=== PATIENT | female | born 1990 | race Two or more races ===

== ENCOUNTER 2022-01-12 08:24 | Outpatient (REF) | payer OTHER, SELFPAY ==
[2022-01-12 09:15] LABS: Hematocrit 40.1 % (37.0-47.0); Hemoglobin 13.1 g/dl (12.0-16.0); Mean Corpuscular HGB Conc 32.7 g/dl (31.0-35.0); Mean Corpuscular Hemoglobin 27.4 pg (27.0-33.0); Mean Corpuscular Volume 83.9 fL (80.0-98.0); Mean Platelet Volume 9.9 fL (9.4-12.3); Platelet Count 348 X10*3/uL (160-400); Red Blood Count 4.78 X10*6/uL (4.20-5.50); Red Cell Distribution Width 13.3 % (11.0-16.0); White Blood Count 7.6 X10*3/uL (4.8-10.8)
[2022-01-12 09:50] LABS: Alanine Aminotransferase 13 U/L (0-31); Albumin Level 4.1 g/dL (3.5-5.0); Alkaline Phosphatase 60 U/L (39-117); Anion Gap 14 (12-20); Aspartate Amino Transferase 15 U/L (5-31); Bilirubin Total 0.3 mg/dL (0.0-1.0); Blood Urea Nitrogen 7 mg/dL (9-16); Calcium 9.1 mg/dL (8.4-10.2); Carbon Dioxide 25 mmol/L (22-29); Chloride 101 mmol/L (96-108); Cholesterol 202 mg/dL; Estimated Glomerular Filt Rate > 60; Glucose Fasting 86 mg/dL (60-99); HDL Cholesterol 85 mg/dL; LDL Cholesterol Calculated 105 mg/dl; Potassium 3.9 mmol/L (3.3-5.1); Sodium 136 mmol/L (135-145); Triglycerides 63 mg/dL
[2022-01-12 10:13] LABS: TSH reflex Free T4 17.94 uIU/mL (0.32-4.0)
[2022-01-12 10:54] LABS: Free T4 (Free Thyroxine) 0.85 ng/dL (0.71-1.85)
== END 2022-01-12 08:25 | disposition home or self-care (01) ==
LOC: HO.LAB 08:24
PROVIDERS: PCP Hospitalist; Referring Provider Midwife; Visit Provider Hospitalist
DX: Z00.00 Encounter for general adult medical examination without abnormal findings (principal)
CPT/HCPCS: 36415; 80053; 80061; 84439; 84443; 85027

== ENCOUNTER 2022-02-12 09:38 | Outpatient (REF) | payer OTHER, SELFPAY ==
[2022-02-12 10:53] LABS: Thyroid Stimulating Hormone 2.67 uIU/mL (0.32-4.0)
[2022-02-15 20:36] LABS: Thyrotropin Receptor Antibody <1.00 IU/L (<=2.00)
== END 2022-02-12 09:39 | disposition home or self-care (01) ==
LOC: HO.LAB 09:38
PROVIDERS: PCP Hospitalist; Visit Provider Internal Medicine Endocrinology, Diabetes & Metabolism
DX: Z86.39 Personal history of other endocrine, nutritional and metabolic disease (principal)
CPT/HCPCS: 36415; 83520; 84439; 84443

== ENCOUNTER 2022-03-14 08:32 | Outpatient (REF) | payer OTHER, SELFPAY ==
[2022-03-14 10:13] LABS: Free T4 (Free Thyroxine) 1.17 ng/dL (0.71-1.85); Thyroid Stimulating Hormone 2.54 uIU/mL (0.32-4.0)
== END 2022-03-14 08:33 | disposition home or self-care (01) ==
LOC: HO.LAB 08:32
PROVIDERS: PCP Hospitalist; Visit Provider Internal Medicine Endocrinology, Diabetes & Metabolism
DX: Z86.39 Personal history of other endocrine, nutritional and metabolic disease (principal)
CPT/HCPCS: 36415; 84439; 84443

== ENCOUNTER 2022-04-16 08:48 | Outpatient (REF) | payer OTHER, SELFPAY ==
[2022-04-16 11:06] LABS: Free T4 (Free Thyroxine) 1.01 ng/dL (0.71-1.85); Thyroid Stimulating Hormone 2.22 uIU/mL (0.32-4.0)
== END 2022-04-16 08:49 | disposition home or self-care (01) ==
LOC: HO.LAB 08:48
PROVIDERS: PCP Hospitalist; Visit Provider Internal Medicine Endocrinology, Diabetes & Metabolism
DX: Z86.39 Personal history of other endocrine, nutritional and metabolic disease (principal)
CPT/HCPCS: 36415; 84439; 84443

== ENCOUNTER 2022-06-10 09:32 | Outpatient (REF) | payer OTHER, SELFPAY ==
[2022-06-10 11:30] LABS: Free T4 (Free Thyroxine) 0.93 ng/dL (0.71-1.85); Thyroid Stimulating Hormone 5.82 uIU/mL (0.32-4.0)
== END 2022-06-10 09:33 | disposition home or self-care (01) ==
LOC: HO.LAB 09:32
PROVIDERS: PCP Hospitalist; Visit Provider Internal Medicine Endocrinology, Diabetes & Metabolism
DX: Z86.39 Personal history of other endocrine, nutritional and metabolic disease (principal)
CPT/HCPCS: 36415; 84439; 84443

== ENCOUNTER 2022-07-10 07:26 | Outpatient (REF) | payer OTHER, SELFPAY ==
[2022-07-10 09:08] LABS: Free T4 (Free Thyroxine) 0.89 ng/dL (0.71-1.85); Thyroid Stimulating Hormone 1.96 uIU/mL (0.32-4.0)
== END 2022-07-10 07:27 | disposition home or self-care (01) ==
LOC: HO.LAB 07:26
PROVIDERS: PCP Hospitalist; Visit Provider Internal Medicine Endocrinology, Diabetes & Metabolism
DX: Z86.39 Personal history of other endocrine, nutritional and metabolic disease (principal)
CPT/HCPCS: 36415; 84439; 84443

== ENCOUNTER → 2022-07-11 08:33 | Outpatient (BNVA) | payer OTHER, SELFPAY | PROVIDERS: PCP Hospitalist; Visit Provider Internal Medicine Endocrinology, Diabetes & Metabolism | DX: Z13.89 Encounter for screening for other disorder (principal) ==

== ENCOUNTER 2022-09-12 09:16 | Outpatient (REF) | payer OTHER, SELFPAY ==
[2022-09-12 10:54] LABS: Free T4 (Free Thyroxine) 1.23 ng/dL (0.71-1.85); Thyroid Stimulating Hormone 0.04 uIU/mL (0.32-4.0)
== END 2022-09-12 09:17 | disposition home or self-care (01) ==
LOC: HO.LAB 09:16
PROVIDERS: PCP Hospitalist; Visit Provider Internal Medicine Endocrinology, Diabetes & Metabolism
DX: Z86.39 Personal history of other endocrine, nutritional and metabolic disease (principal)
CPT/HCPCS: 36415; 84439; 84443

== ENCOUNTER 2022-10-25 09:23 | Outpatient (REF) | payer OTHER, SELFPAY ==
[2022-10-25 11:12] LABS: Free T4 (Free Thyroxine) 0.92 ng/dL (0.71-1.85); Thyroid Stimulating Hormone 1.08 uIU/mL (0.32-4.0)
== END 2022-10-25 09:24 | disposition home or self-care (01) ==
LOC: HO.LAB 09:23
PROVIDERS: PCP Hospitalist; Visit Provider Internal Medicine Endocrinology, Diabetes & Metabolism
DX: E89.0 Postprocedural hypothyroidism (principal)
CPT/HCPCS: 36415; 84439; 84443

== ENCOUNTER → 2022-11-13 08:30 | Outpatient (BNVA) | payer OTHER, SELFPAY | PROVIDERS: PCP Hospitalist; Visit Provider Internal Medicine Endocrinology, Diabetes & Metabolism ==

== ENCOUNTER 2023-02-03 09:40 | Outpatient (AMB) | payer OTHER, SELFPAY ==
[2023-02-03 09:46] VITALS: BP 108/64; PULSE 67; RESP 12; TEMP 36.6; O2SAT 99; BMI 35.7
--- NOTE | 2023-02-03 09:46 | A.OFFPC_ITS ---
Vital Signs 02/03/23 09:46 Height 5 ft 8 in Weight 235 lb 2 oz BMI 35.7 BP 108/64 Blood Pressure Location Lt brachial Position Sitting Respiration 12 Pulse 67 Pulse Source Pulse Oximeter Temp 97.8 F Temp Source Temporal Artery Scan Pulse Oximetry (%) 99 Oxygen Delivery Method Room Air Intake Visit Reasons: PE Intake Note: Patient states that her caramel candy maker helper discharged her and she was told to follow up with PCP for her medications. Patient states that shes been experiencing alot of dandruff and would like a referral to a race car driver. Patient also states that after having her baby its been hard for her to lose weight and she would like info on what could be done to help. 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 Operator Required: No Accompanied by: Spouse Allergies No Known Allergies Allergy (Verified 02/03/23 10:38) Medication List - Last Reconciled 02/03/23 by Rose Mary Blanchard CNP levonorgestrel (Liletta) intrauterine levothyroxine 100 mcg PO DAILY Tobacco use date assessed: 02/03/23 Dental Screening Dental Screen Date: 02/03/23 Did you have a dental visit in the last 12 months?: No Did you have a dental problem in the last 6 months where you did not have access to dental care?: No Was dental information given to patient?: Yes HPI HPI Comments History of Present Illness Details 32-year-old female presents for a comple te physical exam. She has history of hypothyroidism and is on levothyroxine 100 mg daily. She notes she has been taking her medication as prescribed. She was followed by [facility] endocrinology and was discharged in October with recommendation to follow-up with her PCP. She reports dandruff and has been using denorex dandruff shampoo. She states she has an appointment with dermatology next week. She notes she delivered a baby 6 months ago and has been finding it difficult to lose weight. She states she exercise at the gym 3 days a week and has been maintaining a healthy diet. She notes that she has an appointment scheduled with [facility] for a pap smear test next month. 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 1. Little interest or pleasure in doing things: not at all 2. Feeling down, depressed, or hopeless: not at all 3. Trouble falling or staying asleep, or sleeping too much: not at all 4. Feeling tired or having little energy: not at all 5. Poor appetite or overeating: not at all 6. Feeling bad about yourself - or that you are a failure or have let yourself or your family down: not at all 7. Trouble concentrating on things, such as reading the newspaper or watching television: not at all 8. Moving or speaking so slowly that other people could have noticed. Or the opposite - being so fidgety or restless that you have been moving around a lot more than usual: not at all 9. Thoughts that you would be better off or of hurting yourself in some way: not at all Total score: 0 Depression Screening Interpretation: Negative Source: Developed by Drs. Ge Piña, Andreia Dunn, Dean Bran and colleagues, with an educational gwen from [employer]. Thrive Questionnaire Date Thrive assessed: 02/03/23 I am a: Patient What is your living situation today?: I have a steady place to live Within the past 12 months, did the food you bought not last and you didn't have the money to get more?: Never true Within the past 12 months, did you worry whether your food would run out before you got money to buy more?: Never true Do you have trouble paying for medicines?: No Do you have trouble getting transportation to medical appointments?: No Do you have trouble paying your heating and electricity bill?: No Do you have trouble taking care of your child, family member or friend?: No Do you have trouble with day-to-day activities such as bathing, preparing meals, shopping, managing finances, etc.?: No Are you currently unemployed and looking for a job?: No Are you interested in more education?: No Please select the resources that you would like help with: None Currently or been in a relationship where the following occur: no concerns reported AUDIT C Alcohol Use Questionnaire (AUDIT-C) 1. How often do you have a drink containing alcohol?: Monthly or less 2. How many drinks containing alcohol do you have on a typical day when you are drinking?: 1 or 2 3. How often do you have six or more drinks on one occasion?: Never Total Score: 1 KATELIN-7 AMB Questionnaire KATELIN-7 Date KATELIN - 7 assessed: 02/03/23 Feeling nervous, anxious, or on edge: 0 = Not at all Not being able to stop or control worryin = Not at all Worrying too much about different things: 0 = Not at all Trouble relaxin = Not at all Being so restless that it is hard to sit still: 0 = Not at all Becoming easily annoyed or irritable: 0 = Not at all Feeling afraid as if something awful might happen: 0 = Not at all Total KATELIN-7 score (0-4 normal; 5-9 mild; 10-14 moderate; 15-21 severe): 0 Source: Developed by Drs. Ge Piña, Andreia Dunn, Dean Bran and colleagues, with an educational gwen from [employer]. Review of Systems Const Details: Denies chills, Denies fatigue, Denies fever(s), Denies headache(s) and Denies weakness HEENT Denies change in vision, Denies dizziness, Denies headache(s), Denies hearing loss, Denies nasal congestion, Denies sinus pain, Denies sinus pressure and Denies sore throat Card Denies chest pain, Denies lightheadedness, Denies dyspnea and Denies other (palpitations) Resp Denies cough, Denies dyspnea and Denies wheezing GI Denies abdominal pain, Denies melena, Denies hematochezia, Denies change in bowel habits, Denies dyspepsia and Denies nausea Denies hematuria and Denies dysuria Musc Denies abnormal gait, Denies myalgias, Denies arthralgias, Denies numbness and Denies tingling Skin/Breast Denies rash, Denies unusual bruising and Denies wounds Neuro Denies abnormal gait, Denies dizziness, Denies headache(s), Denies memory loss, Denies numbness, Denies Sensory deficit (Neuro), Denies tingling and Denies weakness Psych Denies anxiety, Denies depression and Denies memory loss Endo Denies cold intolerance, Denies fatigue, Denies heat intolerance, Denies polydipsia and Denies polyuria Rosalio/Lymph Denies easy bleeding and Denies easy bruising Aller/Immun Denies wheezing Physical exam (Primary Care) Vital Signs: Last Vital Signs Temp 97.8 F 02/03/23 09:46 Pulse 67 02/03/23 09:46 Resp 12 02/03/23 09:46 BP 108/64 02/03/23 09:46 Pulse Ox 99 02/03/23 09:46 Oxygen Delivery Method Room Air 02/03/23 09:46 BMI result Body Mass Index 35.7 Tobacco/Smoking Status: Tobacco use Status Tobacco use date assessed 02/03/23 02/03/23 09:58 Patient Tobacco Use Status Never used Tobacco 02/03/23 09:58 e-Cigarette/Vaping Use Never Used 02/03/23 09:58 PHQ-9: PHQ-9 Score PHQ-9: Total score 0 02/03/23 10:40 Depression Screening Interpretation: Negative Thrive Assessment: Date of Thrive Assessment Date Thrive assessed 02/03/23 02/03/23 09:58 Currently or been in a relationship where the following occur: no concerns reported Const Other: General: no acute distress, well developed, alert and awake Nutritional Appearance: well nourished Orientation/consciousness: patient oriented x3 HENMT Head: Yes normocephalic and Yes atraumatic Ears: hearing grossly normal bilaterally and TM's normal bilaterally General nose exam: Normal external nose present and Normal nares present Mouth: Normal oral and palatal mucosa present and moist mucous membranes Teeth and gingiva: dentition normal Throat: Yes oropharynx normal Eyes Pupils: Equal, round and reactive pupils present and Pupil accommodation reflex normal EOM: EOMs intact bilaterally Neck Neck: Yes normal visual inspection, Yes no lymphadenopathy and Yes trachea midline Thyroid: Thyroid normal Carotids: no bruits Lymphatic: no lymphadenopathy noted Chest Chest palpation & inspection: normal inspection of the chest Resp Effort & Inspection: normal respiratory effort Auscultation: clear to auscultation bilaterally Cardio Rate: regular rate Rhythm: regular rhythm Heart sounds: S1 normal heart sound present, S2 normal heart sound present, no gallops, no murmurs and no rubs Bruits: no abdominal aortic bruits and no carotid bruits GI Palpation (GI): No Abdominal aortic bruit present, Soft to palpation, nontender, No hepatosplenomegaly present and No Rebound tenderness present Auscultation: normal bowel sounds General: Yes no CVA tenderness Back/Spine/Pelvis Back: no CVA tenderness Cervical Spine: cervical ROM normal and No Cervical spine tenderness Thoracic/Lumbar Spine: thoraco-lumbar ROM normal, No pain with thoraco-lumbar ROM, No thoracic spinal tenderness and No lumbar spinal tenderness Skin General: warm and dry. Normal skin color. Normal skin turgor Lesions: no lesions Rashes: no rashes Trauma: no lacerations or abrasions Wounds: no wounds Nails: normal Neuro General: patient oriented x3, gait normal and CN's II-XI intact bilaterally Cranial nerves: Yes Equal, round and reactive pupils present Cognition (Neuro): normal cognition Gait exam (Neuro): Normal gait present Motor exam (neuro): 5/5 motor strength present throughout Sensory Exam: No Sensory deficit (Neuro) Deep tendon reflexes (DTR's): Right patellar reflex intensity grade: 2+ and Left patellar reflex intensity grade: 2+ Extrem General: Yes normal to inspection, No edema and No calf tenderness Psych Appearance: grossly normal Affect: normal affect Attitude: cooperative Thought process: Normal thought process present Assessment and Plan Assessment & Plan (1) Normal physical exam: Code(s): Z00.00 - Encounter for general adult medical examination without abnormal findings Plan: No significant physical restrictions or limitations noted She has not had routine blood work done in over a year. Routine fasting labs ordered; advised to fast for at least 10-12 hours and get blood work done; schedule a telehealth appointment in 2-4 weeks for labs review; follow-up with Dermatology and punch press feeder as planned; verbalized understanding and agreed with the plan. (2) Dandruff: Code(s): L21.0 - Seborrhea capitis Plan: She reports dandruff and has been using denorex dandruff shampoo. She states she has an appointment with dermatology next week. Small amount of dandruff noted to the the frontal scalp, no seborrheic dermatitis noted. Advised to continue to use denorex dandruff shampoo and follow-up with Dermatology as planned. Return with worsening or new signs and symptoms. Verbalized understanding and agreed with treatment plan. (3) Obesity (BMI 30-39.9): Code(s): E66.9 - Obesity, unspecified Plan: She notes she delivered a baby 6 months ago and has been finding it difficult to lose weight. She states she exercise at the gym 3 days a week and has been maintaining a healthy diet. Routine exercise and healthy diet encouraged. Referred to nutrition/dietitian. Follow-up with concerns or symptoms. Verbalized understanding and agreed with treatment plan. (4) Laboratory tests ordered as part of a complete physical exam (CPE): Code(s): Z00.00 - Encounter for general adult medical examination without abnormal findings Plan: Fasting labs ordered as part of a complete physical exam. Advised to fast for at least 10 hours before getting labs drawn. May drink water Verbalized understanding and agreed with treatment plan. Orders: Orders Complete Blood Count Auto Diff Today Z00.00 - Encounter for general adult medical examination without abnormal findings Lipid Panel Today Z00.00 - Encounter for general adult medical examination without abnormal findings UA CC w/rflx Micro + Cult Today Z00.00 - Encounter for general adult medical examination without abnormal findings Comprehensive [place]. Panel Fast Today Z00.00 - Encounter for general adult medical examination without abnormal findings TSH reflex Free T4 Today Z00.00 - Encounter for general adult medical examination without abnormal findings Referrals Nutrition/Dietitian Referral E66.9 - Obesity, unspecified Coding Level of Care Code Est Pt Prev Care 18-39y(18938) Diagnoses Normal physical exam Z00.00 Dandruff L21.0 Obesity (BMI 30-39.9) E66.9 Laboratory tests ordered as part of a complete physical exam (CPE) Z00.00
== END 2023-02-03 11:01 | disposition home or self-care (01) ==
PROVIDERS: PCP Hospitalist; Visit Provider Nurse Practitioner Family
DX: Z00.00 Encounter for general adult medical examination without abnormal findings (principal); L21.0 Seborrhea capitis; E66.9 Obesity, unspecified; Z68.35 Body mass index [BMI] 35.0-35.9, adult
CPT/HCPCS: 99395

== ENCOUNTER 2023-02-03 11:02 | Outpatient (REF) | payer OTHER, SELFPAY ==
[2023-02-03 14:16] LABS: MANUAL DIFF FLAG NO
[2023-02-03 14:21] LABS: Basophils Percent Auto 0.7 % (0-2); Eosinophils Absolute Auto 0.2 X10*3/uL (0.0-0.4); Eosinophils Percent Auto 2.7 % (0-4); Hematocrit 41.5 % (37.0-47.0); Hemoglobin 13.5 g/dl (12.0-16.0); Imm Gran Abs Auto 0.01 X10*3/uL (0.00-0.03); Imm Gran Pct Auto 0.2 % (0.0-0.4); Lymphocytes Absolute Auto 1.7 X10*3/uL (1.2-4.9); Lymphocytes Percent Auto 29.9 % (20-40); Mean Corpuscular HGB Conc 32.5 g/dl (31.0-35.0); Mean Corpuscular Hemoglobin 27.9 pg (27.0-33.0); Mean Corpuscular Volume 85.7 fL (80.0-98.0); Mean Platelet Volume 10.3 fL (9.4-12.3); Monocytes Absolute Auto 0.3 X10*3/uL (0.1-1.2); Monocytes Percent Auto 4.6 % (2-11); Neutrophils Absolute Auto 3.5 x10*3/uL (2.0-8.3); Neutrophils Percent Auto 61.9 % (45-73); Platelet Count 359 X10*3/uL (160-400); Red Blood Count 4.84 X10*6/uL (4.20-5.50); Red Cell Distribution Width 12.8 % (11.0-16.0); White Blood Count 5.6 X10*3/uL (4.8-10.8)
[2023-02-03 14:39] LABS: Appearance Urine Clear; Color Urine Yellow; Glucose Urine UA Negative (Negative); Leukocyte Esterase Urine Negative (Negative); Nitrite Urine Negative (Negative); Specific Gravity - Urine 1.015 (1.005-1.025); Urine Blood Negative (Negative); Urine Ketones Negative (Negative); Urine Protein Negative (Neg-Trace)
[2023-02-03 15:05] LABS: Alanine Aminotransferase 17 U/L (0-31); Albumin Level 4.3 g/dL (3.5-5.0); Alkaline Phosphatase 75 U/L (39-117); Anion Gap 11 (12-20); Aspartate Amino Transferase 19 U/L (5-31); Bilirubin Total 0.5 mg/dL (0.0-1.0); Blood Urea Nitrogen 11 mg/dL (9-16); Calcium 9.5 mg/dL (8.4-10.2); Carbon Dioxide 25 mmol/L (22-29); Chloride 106 mmol/L (96-108); Cholesterol 179 mg/dL (<200); Estimated Glomerular Filt Rate > 60; Glucose Fasting 91 mg/dL (60-99); HDL Cholesterol 60 mg/dL (>40); LDL Cholesterol Calculated 105 mg/dL (<100); Potassium 3.9 mmol/L (3.3-5.1); Sodium 138 mmol/L (135-145); Total Protein 7.5 g/dL (6.5-8.0); Triglycerides 70 mg/dL (<150)
[2023-02-03 15:10] LABS: TSH reflex Free T4 0.53 uIU/mL (0.32-4.0)
== END 2023-02-03 11:03 | disposition home or self-care (01) ==
LOC: HO.WFDLDS 11:02
PROVIDERS: Visit Provider Nurse Practitioner Family
DX: Z00.00 Encounter for general adult medical examination without abnormal findings (principal); Z20.2 Contact with and (suspected) exposure to infections with a predominantly sexual mode of transmission
CPT/HCPCS: 36415; 80053; 80061; 81003; 84443; 85025

== ENCOUNTER 2023-03-06 15:26 | Outpatient (AMB) | payer OTHER, SELFPAY ==
--- NOTE | 2023-03-06 15:21 | MHC.PC.OV ---
Intake Visit Reasons: discuss labs Intake Note: Patient states she viewed them in portal and nataly like to discuss high cholesterol level. Ball Fringe Machine Operator Required: No Allergies No Known Allergies Allergy (Verified 03/06/23 15:26) Medication List - Last Reconciled 03/06/23 by Rose Mary Blanchard CNP levonorgestrel (Liletta) intrauterine levothyroxine 100 mcg PO DAILY Tobacco use date assessed: 02/03/23 HPI HPI Comments History of Present Illness Details This is a telephonic telehealth visit for review of recent blood work. Patient had a physical exam a month ago and routine labs were ordered. She has history of hypothyroidism associated with surgical procedure. She was followed by endocrinology who recommended follow-up with primary care at the patient's last visit. She offers no complaints and denies acute symptoms. 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 Ge Piña, Andreia Dunn, Dean Bran and colleagues, with an educational gwen from [employer]. Review of Systems Const Details: Const Denies chills, Denies fatigue, Denies fever(s), Denies headache(s) and Denies weakness ENT Denies dizziness and Denies headache(s) Card Denies chest pain, Denies lightheadedness, Denies dyspnea and Denies other (Palpitations) Resp Denies cough, Denies dyspnea, Denies wheezing and Denies other ( shortness of breath) GI Denies abdominal pain, Denies melena, Denies hematochezia, Denies change in bowel habits, Denies dyspepsia and Denies nausea Denies hematuria and Denies dysuria Musc Denies abnormal gait, Denies myalgias, Denies arthralgias, Denies numbness and Denies tingling Skin/Breast Denies rash, Denies unusual bruising and Denies wounds Neuro Denies abnormal gait, Denies dizziness, Denies headache(s), Denies memory loss, Denies numbness, Denies Sensory deficit (Neuro), Denies tingling and Denies weakness Psych Denies anxiety, Denies depression, Denies memory loss Endo Denies cold intolerance, Denies fatigue, Denies heat intolerance, Denies polydipsia and Denies polyuria Aller/Immun Denies wheezing Physical exam (Primary Care) Tobacco/Smoking Status: Tobacco use Status Tobacco use date assessed 02/03/23 03/06/23 15:23 Patient Tobacco Use Status Never used Tobacco 03/06/23 15:23 e-Cigarette/Vaping Use Never Used 03/06/23 15:23 Thrive Assessment: Date of Thrive Assessment Date Thrive assessed 02/03/23 03/06/23 15:23 Const Other: Telehealth visit. No physical exam Telehealth Telehealth Location of provider rendering services: practice address Location of patient: address on file Patient Identification confirmed using: Name, : Yes Telehealth method: voice only Patient verbally consented to treatment: Yes Patient verbally consented to billing insurance company: Yes Patient informed of any privacy concerns related to visit: Yes Assessment and Plan Assessment & Plan (1) Hypothyroidism associated with surgical procedure: Code(s): E89.0 - Postprocedural hypothyroidism Plan: Recent lab results reviewed with the patient. TSH level was normal Continue to take levothyroxine as prescribed Will recheck TSH/T4 levels in 6 months. Advised to get blood work done to 3 days before next visit Follow-up in 6 months or return sooner with worsening or new symptoms Verbalized understanding and agreed with treatment plan. (2) Elevated LDL cholesterol level: Code(s): E78.00 - Pure hypercholesterolemia, unspecified Plan: Recent lab results is unremarkable except for slightly elevated LDL level, 105. Urinalysis is normal Advised to limit foods high in saturated fat and avoid foods high trans fat Routine exercise encouraged Will continue to monitor Verbalized understanding and agreed with treatment plan. Orders: Orders TSH reflex Free T4 6 Months E89.0 - Postprocedural hypothyroidism Coding Level of Care Code Tele Est Pt Level 2 (98677) Diagnoses Hypothyroidism associated with surgical procedure E89.0 Elevated LDL cholesterol level E78.00 Time Spent (min) 15
== END 2023-03-06 16:47 | disposition home or self-care (01) ==
LOC: HO.HMGFM 15:26
PROVIDERS: PCP Hospitalist; Visit Provider Nurse Practitioner Family
DX: E89.0 Postprocedural hypothyroidism (principal); E78.00 Pure hypercholesterolemia, unspecified
CPT/HCPCS: 99212

== ENCOUNTER 2023-08-18 09:01 | Outpatient (REF) | payer OTHER, SELFPAY ==
[2023-08-18 11:57] LABS: TSH reflex Free T4 2.86 uIU/mL (0.32-4.0)
== END 2023-08-18 09:02 | disposition home or self-care (01) ==
LOC: HO.WFDLDS 09:01
PROVIDERS: Visit Provider Nurse Practitioner Family
DX: E89.0 Postprocedural hypothyroidism (principal)
CPT/HCPCS: 36415; 84443

== ENCOUNTER 2023-08-18 09:07 | Outpatient (AMB) | payer OTHER, SELFPAY ==
[2023-08-18 09:32] VITALS: BP 122/76; PULSE 89; RESP 13; TEMP 36.4; O2SAT 99; BMI 35.4
--- NOTE | 2023-08-18 09:32 | A.OFFPC_ITS ---
Vital Signs 08/18/23 09:32 Height 5 ft 8 in Weight 233 lb BMI 35.4 BP 122/76 Blood Pressure Location Rt brachial Position Sitting Respiration 13 Pulse 89 Pulse Source Pulse Oximeter Temp 97.6 F Temp Source Temporal Artery Scan Pulse Oximetry (%) 99 Oxygen Delivery Method Room Air Intake Visit Reasons: 6 mos hypothyroidism Ginger Farmer Required: No Accompanied by: Self / Same As Patient Allergies No Known Allergies Allergy (Verified 08/18/23 09:57) Medication List - Last Reconciled 08/18/23 by Rose Mary Blanchard CNP levothyroxine 100 mcg PO DAILY Tobacco use date assessed: 08/18/23 Dental Screening Dental Screen Date: 08/18/23 Did you have a dental visit in the last 12 months?: No Did you have a dental problem in the last 6 months where you did not have access to dental care?: No Was dental information given to patient?: Patient has dentist HPI HPI Comments History of Present Illness Details 32-year-old female presents for hypothyr oidism follow-up She admits to taking levothyroxine as prescribed without adverse reactions She offers no complaints and denies acute symptoms at this time She was not able to get her TSH/T4 blood work done before this appointment but did so this morning She notes that she has been working with the operations architect/dietitian from [place] and has lost 8 lb. She notes that has a cheaper option than having a operations architect in the [place] 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 Ge Piña, Andreia Dunn, Dean Bran and colleagues, with an educational gwen from [employer]. Review of Systems Const Details: Const Denies chills, Denies fatigue, Denies fever(s), Denies headache(s) and Denies weakness ENT Denies dizziness and Denies headache(s) Card Denies chest pain, Denies lightheadedness, Denies dyspnea and Denies other (Palpitations) Resp Denies cough, Denies dyspnea, Denies wheezing and Denies other ( shortness of breath) GI Denies abdominal pain, Denies melena, Denies hematochezia, Denies change in bowel habits, Denies dyspepsia and Denies nausea Denies hematuria and Denies dysuria Musc Denies abnormal gait, Denies myalgias, Denies arthralgias, Denies numbness and Denies tingling Skin/Breast Denies rash, Denies unusual bruising and Denies wounds Neuro Denies abnormal gait, Denies dizziness, Denies headache(s), Denies memory loss, Denies numbness, Denies Sensory deficit (Neuro), Denies tingling and Denies weakness Psych Denies anxiety, Denies depression, Denies memory loss Endo Denies cold intolerance, Denies fatigue, Denies heat intolerance, Denies polydipsia and Denies polyuria Aller/Immun Denies wheezing Physical exam (Primary Care) Vital Signs: Last Vital Signs Temp 97.6 F 08/18/23 09:32 Pulse 89 08/18/23 09:32 Resp 13 08/18/23 09:32 BP 122/76 08/18/23 09:32 Pulse Ox 99 08/18/23 09:32 Oxygen Delivery Method Room Air 08/18/23 09:32 BMI result Body Mass Index 35.4 Tobacco/Smoking Status: Tobacco use Status Tobacco use date assessed 08/18/23 08/18/23 09:37 Patient Tobacco Use Status Never used Tobacco 08/18/23 09:37 e-Cigarette/Vaping Use Never Used 08/18/23 09:37 Thrive Assessment: Date of Thrive Assessment Date Thrive assessed 02/03/23 08/18/23 09:37 Const Other: General: no acute distress and well developed Nutritional Appearance: well nourished Orientation/consciousness: patient oriented x3 HENMT Head: Yes normocephalic and Yes atraumatic Eyes General: appearance normal, both eyes and all related structures Pupils: Equal, round and reactive pupils present EOM: EOMs intact bilaterally Resp Effort & Inspection: normal respiratory effort Auscultation: clear to auscultation bilaterally Cardio Rate: regular rate Rhythm: regular rhythm Heart sounds: S1 normal heart sound present, S2 normal heart sound present, no gallops, no murmurs and no rubs GI Palpation (GI): No Abdominal aortic bruit present, Soft to palpation, nontender, No hepatosplenomegaly present and No Rebound tenderness present Auscultation: normal bowel sounds General: Yes no CVA tenderness Back/Spine/Pelvis Back: no CVA tenderness Cervical Spine: cervical ROM normal and No Cervical spine tenderness Thoracic/Lumbar Spine: thoraco-lumbar ROM normal, No pain with thoraco-lumbar ROM, No thoracic spinal tenderness and No lumbar spinal tenderness Extrem General: Yes normal to inspection, No edema and No calf tenderness Skin General: warm and dry. Normal skin color. Normal skin turgor Neuro General: patient oriented x3, gait normal and no focal neuro deficit Cranial nerves: Yes Equal, round and reactive pupils present Cognition (Neuro): normal cognition Gait exam (Neuro): Normal gait present Sensory Exam: No Sensory deficit (Neuro) Psych Appearance: grossly normal Affect: normal affect Attitude: cooperative Thought process: Normal thought process present Assessment and Plan Assessment & Plan (1) Hypothyroidism associated with surgical procedure: Code(s): E89.0 - Postprocedural hypothyroidism Plan: She had TSH/T4 blood work done today Will review results and make changes as needed Continue current treatment regimen Follow-up in 6 months for an extended physical exam or return sooner with symptoms or concerns Verbalized understanding and agreed with treatment plan Orders: Orders Comprehensive Sylvia. Panel Fast 6 Months Z00.00 - Encounter for general adult medical examination without abnormal findings Lipid Panel 6 Months Z00.00 - Encounter for general adult medical examination without abnormal findings Complete Blood Count Auto Diff 6 Months Z00.00 - Encounter for general adult medical examination without abnormal findings TSH reflex Free T4 6 Months Z00.00 - Encounter for general adult medical examination without abnormal findings UA CC w/rflx Micro + Cult 6 Months Z00.00 - Encounter for general adult medical examination without abnormal findings Coding Level of Care Code Est Pt Level 3 (74868) Diagnoses Hypothyroidism associated with surgical procedure E89.0
== END 2023-08-18 10:07 | disposition home or self-care (01) ==
PROVIDERS: PCP Nurse Practitioner Family; Visit Provider Nurse Practitioner Family
DX: E89.0 Postprocedural hypothyroidism (principal)
CPT/HCPCS: 99213

== ENCOUNTER 2023-09-03 08:11 | Outpatient (AMB) | payer OTHER, SELFPAY ==
--- NOTE | 2023-09-03 08:19 | MHC.OFFWIV ---
Intake Vital Signs 09/03/23 08:20 Height 5 ft 8 in Weight 232 lb BMI 35.3 BP 112/60 Blood Pressure Location Rt brachial Position Sitting Pulse 103 H Pulse Source Auscultation Pulse Oximetry (%) 99 Oxygen Delivery Method Room Air Intake Visit Reasons: Back pain Patient Tobacco Use Status: Never used Tobacco Allergies No Known Allergies Allergy (Verified 09/03/23 08:23) Medication List - Last Reconciled 09/03/23 by Mahogany Rivero, INTERNAL SECURITY MANAGER- levothyroxine 100 mcg PO DAILY HPI HPI Comments History of Present Illness Details Here today with c/o back pain Last night was pulling the trash bin and feels like she moved wrong [place] pain immediately Went to bed and woke up this AM and the pain is worse Standing straight and general movement, including carrying child causes pain Feels likes it is swollen Pain is located in mid lower back Tried topical analgesic with no relief. Not breast feeding. Denies red flag sx of back pain. 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[employer]) Current occupational exposures/hazards: No Cognitive needs: No Hearing needs: No Vision needs: No Review of Systems Const All systems reviewed & are unremarkable except as noted in HPI and below Physical Exam Const Other: awake alert NAD accompanied by Neck FROM CARVER x 4, strength and tone WNL, Cap refill WNL, no pain with palp of spine, paraspinal tenderness w/ spasm on the left lower back Assessment & Plan Assessment & Plan (1) Low back pain: Comment: with spasm Plan: meloxicam QD x 7 days with food and then PRN; APAP only for breakthrough pain, no NSAIDS while on meloxicam Muscle relaxer at HS only, to be used sparingly. Supportive care such as gentle stretching, heat/ice applications and topical treatments ok Edu on red flag s/sx to report Out of work note until 09/08/23 Code(s): M54.50 - Low back pain, unspecified Qualifiers: Chronicity: acute Back pain laterality: left Plan: . Plan This note is constructed using voice recognition software. While every effort has been made to ensure accuracy in rapid transit operator, still errors may have been included Sometimes, these errors may affect the content or meaning of the given sentence . Total time spent caring for the patient today was 30 minutes. This includes time spent before the visit reviewing the chart, time spent during the visit, and time spent after the visit on documentation Medications: New meloxicam 7.5 mg PO DAILY 21 tabs 0RF tizanidine (Zanaflex) 4 mg PO BEDTIME PRN 7 tabs 0RF muscle spasticity Coding Level of Care Code Est Pt Level 4 (69487) Diagnoses Low back pain M54.50 Chronicity: acute Back pain laterality: left
[2023-09-03 08:20] VITALS: BP 112/60; PULSE 103; O2SAT 99; BMI 35.3
== END 2023-09-03 08:34 | disposition home or self-care (01) ==
LOC: HO.HMGWIW 08:11
PROVIDERS: PCP Nurse Practitioner Family
DX: M54.50 Low back pain, unspecified (principal)
CPT/HCPCS: 99214

== ENCOUNTER 2023-12-30 08:38 | Outpatient (REF) | payer OTHER, MEDICAID, SELFPAY ==
[2023-12-30 10:15] LABS: Free T4 (Free Thyroxine) 0.82 ng/dL (0.71-1.85); Thyroid Stimulating Hormone 5.09 uIU/mL (0.32-4.0)
== END 2023-12-30 08:39 | disposition home or self-care (01) ==
LOC: HO.LAB 08:38
PROVIDERS: PCP Nurse Practitioner Family; Visit Provider Internal Medicine Endocrinology, Diabetes & Metabolism
DX: Z86.39 Personal history of other endocrine, nutritional and metabolic disease (principal)
CPT/HCPCS: 36415; 84439; 84443

== ENCOUNTER 2023-12-30 10:19 | Outpatient (AMB) | payer OTHER, SELFPAY ==
--- NOTE | 2023-12-30 10:46 | MHC.OFFVIS ---
Vital Signs 12/30/23 10:47 Height 5 ft 8 in Weight 231 lb 11.293 oz BMI 35.2 BP 112/80 Blood Pressure Location Lt brachial Position Sitting Pulse 80 Pulse Source Pulse Oximeter Intake Visit Reasons: f/u hypothyroidism pt is Intake Note: Patient present today for Hypothyroidism follow up visit. Patient is 6 weeks . Wood Fence Installer Required: No Accompanied by: Self / Same As Patient Allergies No Known Allergies Allergy (Verified 12/30/23 10:50) Medication List - Last Reconciled 12/30/23 by Ge Donaldson MD levothyroxine 125 mcg PO DAILY meloxicam 7.5 mg PO DAILY tizanidine (Zanaflex) 4 mg PO BEDTIME PRN HPI Comments Details: 33 YO F with thyroid surgery was a 6 weeks who is seen in consultation at the request of his PCP for Hyothyroidism. [place] the records are not available. Had surgery 12/10/17 total thyroidectomy with benign pathology? First diagnosed with grave's DX in 2017 with labs revealing hyperthyroidism . Treated medically then surgery . The patient has emailed note from the provider in [facility] stating that the pathology showed follicular hyperplasia Currently using 100 mcg of levothyroxine but again c/o fatigue, weight gain, -cold intolerance, -dry skin, -hair loss, -constipation. There is no hx of hyperlipidemia . Denies obstructive sx of goiter . Denies consuming any kelp or seaweed. Denies taking amiodarone. As above currently 6 weeks . 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 There is a healed scar status post thyroidectomy. There is no cervical adenopathy palpated. Lungs CTA. Heart S1, S2 Reg R/R -M/R/G. Abdominal exam benign. Skin exam reveals absence of dryness or thyroid dermopathy or vitiligo. Nail exam reveals absence of thyroid acropachy or oncholysis. Neurologic exam reveals 2+ reflexes . Muscle Strength is 5/5 proximally. There are no tremors in upper extremities. Assessment & Plan Assessment & Plan (1) Hx of thyroid disease: Code(s): Z86.39 - Personal history of other endocrine, nutritional and metabolic disease Category: Medical Plan: See plan below (2) Hypothyroidism associated with surgical procedure: Code(s): E89.0 - Postprocedural hypothyroidism Category: Medical Plan: This is a 31-year-old female with a history of post-surgical hypothyroidism currently currently replaced on 10o mcg levothyroxine. Currently weeks . TSH is elevated Plan is to increase levothyroxine to 125 mcg and recheck TSH and free T4 in 4 weeks. Have patient follow up in 6 weeks Orders: Orders Free T4 (Free Thyroxine) 4 Weeks E89.0 - Postprocedural hypothyroidism Thyroid Stimulating Hormone 4 Weeks E89.0 - Postprocedural hypothyroidism Free T4 (Free Thyroxine) Today Z86.39 - Personal history of other endocrine, nutritional and metabolic disease Thyroid Stimulating Hormone Today Z86.39 - Personal history of other endocrine, nutritional and metabolic disease Referrals Nutrition/Dietitian Referral E66.9 - Obesity, unspecified Medications: New levothyroxine 137 mcg PO DAILY 30 tabs 5RF Discontinued levothyroxine Discontinued Reason: Doctor's Order 100 mcg PO DAILY 30 tabs 4RF Coding Level of Care Code Est Pt Level 3 (35431) Diagnoses Hx of thyroid disease Z86.39 Hypothyroidism associated with surgical procedure E89.0
[2023-12-30 10:47] VITALS: BP 112/80; PULSE 80; BMI 35.2
== END 2023-12-30 11:18 | disposition home or self-care (01) ==
PROVIDERS: PCP Nurse Practitioner Family; Visit Provider Internal Medicine Endocrinology, Diabetes & Metabolism
DX: Z86.39 Personal history of other endocrine, nutritional and metabolic disease (principal); E89.0 Postprocedural hypothyroidism
CPT/HCPCS: 99213

== ENCOUNTER 2024-01-29 08:44 | Outpatient (REF) | payer OTHER, MEDICAID, SELFPAY ==
[2024-01-29 10:08] LABS: Thyroid Stimulating Hormone 1.51 uIU/mL (0.32-4.0)
== END 2024-01-29 08:45 | disposition home or self-care (01) ==
LOC: HO.LAB 08:44
PROVIDERS: PCP Nurse Practitioner Family; Visit Provider Internal Medicine Endocrinology, Diabetes & Metabolism
DX: E89.0 Postprocedural hypothyroidism (principal)
CPT/HCPCS: 36415; 84439; 84443

== ENCOUNTER 2024-02-17 13:20 | Outpatient (AMB) | payer OTHER, MEDICAID, SELFPAY ==
--- NOTE | 2024-02-17 13:22 | A.OFFVIS_ITS ---
Vital Signs 02/17/24 13:23 Height 5 ft 8 in Weight 235 lb 7.259 oz BMI 35.8 BP 108/66 Blood Pressure Location Rt brachial Position Sitting Pulse 87 Pulse Source Pulse Oximeter Intake Visit Reasons: hypothyroidism during Intake Note: Patient present today for hypothyroidism during follow up visit. Internal Combustion Engine Inspector Required: No Accompanied by: Child Allergies No Known Allergies Allergy (Verified 02/17/24 13:27) Medication List - Last Reconciled 02/17/24 by Rhianna Nix MD levothyroxine 137 mcg PO DAILY vit [id number] 27 mg iron- 800 mcg ( Vitamin) 1 tab PO DAILY HPI Comments Details: 33 YO F with history of Graves disease status post thyroidectomy, now followed for postsurgical hypothyroidism who is currently 13 weeks . 3 para 1 She was previously seeing Dr[address] Donaldson, last visit December of 2023. First diagnosed with grave's DX in 2016 with labs revealing hyperthyroidism . Treated medically then surgery . Surgery was [place] outside the country the records are not available. Had surgery 12/10/17 total thyroidectomy with benign pathology The patient has emailed note from the provider in [facility] stating that the pathology showed follicular hyperplasia Currently 13 weeks , has a boy who is 18 months old now, a miscarriage before that Due date August 23 2024 Planning to breast feed No problems with before this, fetus did not develop hyperthyroidism, knee issues of thyroid disease in the child. For roll skinner going to [facility] was Taking 100 mcg of levothyroxine last before . Dosage increased to 137 mcg daily 12/30/23 when TSH was noted to be 5.09 Tirdenss is improved. Gaining weight during . c/o -cold intolerance, -dry skin, -hair loss, -constipation. Mother has hypothyroidism Biotin: No Review of systems Constitutional: no fevers, chills or weight loss HEENT: no changes in vision Cardiac: No chest pain, discomfort or palpitations. Pulmonary: No SOB GI:No abdominal pain, no nausea or vomiting, no anorexia, no blood in stool : no burning micturition, dysuria or increase in urinary frequency Physical exam General: sitting comfortably in no acute distress HEENT: normocephalic/atraumatic, EOM intact, moist oral mucosa Neck: supple, symmetrical, no thyromegaly , no dorsocervical or supraclavicular fat pads Cardiac: normal heart sounds Pulm: normal breath sounds B/L, no added breath sounds Abd: not distended, no tenderness Extremities: no edema, no signs of myxedema Neuro: AAO x3, Speech: normal, no facial droop, moving all 4 extremities PFSH Medical History Rhinitis Hypothyroidism associated with surgical procedure Hx of thyroid disease Miscarriage Surgical History Hx of oral surgery H/O thyroidectomy Family History Mother High blood pressure Hypothyroidism Father No known health problems Social History Housing: Apartment Patient Tobacco Use Status: Never used Tobacco e-Cigarette/Vaping Use: Never Used Second Hand Smoke Exposure: No service: No Current occupational status: employed 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[employer]) Current occupational exposures/hazards: No Cognitive needs: No Hearing needs: No Vision needs: No Physical Exam Vital Signs: Last Vital Signs Pulse 87 02/17/24 13:23 BP 108/66 02/17/24 13:23 BMI result Body Mass Index 35.8 Results Reviewed Results Reviewed: Laboratory Tests 01/12/22 02/12/22 03/14/22 08:40 09:50 09:00 TSH 17.94 H 2.67 2.54 Free T4 1.10 1.17 04/16/22 06/10/22 07/10/22 09:10 09:43 07:41 TSH 2.22 5.82 H 1.96 Free T4 1.01 0.93 0.89 09/12/22 10/25/22 02/03/23 09:23 09:35 11:03 TSH 1.08 0.53 Free T4 1.23 0.92 08/18/23 12/30/23 01/29/24 09:02 08:45 08:52 TSH 2.86 5.09 H 1.51 Free T4 0.82 1.10 Assessment & Plan Assessment & Plan (1) Hypothyroidism associated with surgical procedure: Code(s): E89.0 - Postprocedural hypothyroidism Category: Medical Plan: Patient with a history of Graves disease diagnosed in 2017, who underwent total thyroidectomy in 2018 with benign pathology, now followed for postsurgical hypothyroidism who is currently 13 weeks . Currently on levothyroxine 137 mcg daily. Most recent TSH from 01/29/2024 was 1.51 with free T4 of 1.10. She is in her 2nd trimester currently. I do not see trimester specific ranges given in the lab. Hence we follow as generally guideline for TSH during the 1st trimester is usually supposed to be between 0.2-2.5, TSH in the 2nd trimester aim for 0.2-3 and in the 3rd trimester 0.3-3. Currently TSH is within range. Given that she has a history of Graves disease, thyrotropin receptor antibodies should be checked. If these are elevated greater than 3 times the upper limit the test is usually repeated between 18-22 weeks and if still elevated maternal medicine needs to be alerted. Plan: -continue levothyroxine 137 mcg daily -repeat TSH, free T4 in 4 weeks -check TSI, thyrotropin receptor antibodies -we will reach out with results on the portal -follow up in 3 months Plan I spent 30 minutes in reviewing the record, seeing the patient and documenting in the medical record. Orders: Orders Thyroid Stimulating Hormone 2 Weeks E89.0 - Postprocedural hypothyroidism Free T4 (Free Thyroxine) 2 Weeks E89.0 - Postprocedural hypothyroidism Thyroglobulin Antibodies 2 Weeks E89.0 - Postprocedural hypothyroidism, Z86.39 - Personal history of other endocrine, nutritional and metabolic disease Thyroid Stimulating Immunoglob 2 Weeks E89.0 - Postprocedural hypothyroidism, Z86.39 - Personal history of other endocrine, nutritional and metabolic disease Thyrotropin Receptor Antibody 2 Weeks E89.0 - Postprocedural hypothyroidism, Z86.39 - Personal history of other endocrine, nutritional and metabolic disease Medications: Refilled levothyroxine 137 mcg PO DAILY 30 tabs 5RF Patient Instructions: Do blood work in 2 weeks You will need thyroid blood work every 4 weeks Continue levothyroxine 137 mcg daily Ensure your OB doctor knows you have history of hyperthyroidism I will see you back in 3months but we will be in touch through the portal with regular blood work Coding Level of Care Code Est Pt Level 4 (99967) Diagnoses Hypothyroidism associated with surgical procedure E89.0 Time Spent (min) 30
[2024-02-17 13:23] VITALS: BP 108/66; PULSE 87; BMI 35.8
== END 2024-02-17 13:59 | disposition home or self-care (01) ==
PROVIDERS: PCP Nurse Practitioner Family; Visit Provider Student in an Organized Health Care Education/Training Program
DX: E89.0 Postprocedural hypothyroidism (principal)
CPT/HCPCS: 99214

== ENCOUNTER → 2024-02-17 13:20 | Outpatient (BNVA) | payer OTHER, MEDICAID, SELFPAY | PROVIDERS: PCP Nurse Practitioner Family; Visit Provider Student in an Organized Health Care Education/Training Program ==

== ENCOUNTER 2024-02-24 11:26 | Outpatient (AMB) | payer OTHER, MEDICAID, SELFPAY ==
--- NOTE | 2024-02-24 11:37 | A.OFFVIS_ITS ---
VS Expanded 02/24/24 11:44 03/02/24 12:05 Height 5 ft 8 in 5 ft 8 in Weight 238 lb 8.642 oz 229 lb 8.019 oz BMI 36.3 34.8 Intake Visit Reasons: Obesity/CONFIRMED Allergies No Known Allergies Allergy (Verified 03/01/24 11:04) Nutrition Presentation Details: Pt presents for MNT for obesity and is 14 wks . Pt has hx of hypothyroidism. Pt reports , she has an 18 month old child and is now 14 wks (SAJI 08/23/24). Pt reports having lost about 4-5 lbs in the past week and reports this is probably due to increased activity this past week and omitting snacks. not Pt reports overall good eater, tries a variety of foods, denies food allergies Takes vitamins denies vomiting, diarrhea, denies pica food frequency dairy: 1-2 /day fruits: 2-3/d non starchy veg: including in two meals starches > 25 serving/day eating out 0-1/m fluids: water/juice fats: avocado/nuts, oils/butter BS Monitoring Most Recent Diabetes Results: Cholesterol 195 mg/dL (<200) 02/28/24 HDL Cholesterol 77 mg/dL (>40) 02/28/24 Triglycerides 93 mg/dL (<150) 02/28/24 Creatinine 0.67 mg/dL (0.5-1.4) 02/28/24 Blood Urea Nitrogen 8 mg/dL (9-16) L 02/28/24 Sodium 136 mmol/L (135-145) 02/28/24 Potassium 3.6 mmol/L (3.3-5.1) 02/28/24 Chloride 105 mmol/L (96-108) 02/28/24 Carbon Dioxide 25 mmol/L (22-29) 02/28/24 Calcium 9.4 mg/dL (8.4-10.2) 02/28/24 AST 16 U/L (5-31) 02/28/24 ALT 15 U/L (0-31) 02/28/24 Total Protein 6.7 g/dL (6.5-8.0) 02/28/24 Albumin 3.7 g/dL (3.5-5.0) 02/28/24 JYG-Qjiixfi-Zv.Jeor Equation Height: 5 ft 8 in Weight: 229 lb Resting Metabolic Rate: 1798.75 Calculated Activity Level: Sedentary Calories Needed to Maintain Weight: 2158.50 PFSH Medical History (Updated 03/01/24 @ 11:28 by Rose Mary Blanchard CNP) History of Graves' disease Rhinitis Hypothyroidism associated with surgical procedure Hx of thyroid disease Miscarriage Surgical History Hx of oral surgery H/O thyroidectomy Family History (Updated 03/01/24 @ 10:58 by Rosa Rios MA) Mother High blood pressure Hypothyroidism Father No known health problems Social History Housing: Apartment Patient Tobacco Use Status: Never used Tobacco e-Cigarette/Vaping Use: Never Used Second Hand Smoke Exposure: No service: No Current occupational status: employed Current occupation: [employer] ( [employer]) Current occupational exposures/hazards: No Cognitive needs: No Hearing needs: No Vision needs: No Assessment & Plan Assessment & Plan (1) Obesity (BMI 30-39.9): Comment: Pt 14 wks Code(s): E66.9 - Obesity, unspecified Category: Medical Plan: SAJI 08/24/2023 Pregravid weight : 231 lbs wt at 14 wks preg 229 lbs Expected weight gain throughout : < 15 lbs Wt: 104 Kg ( 02/2024 ) Est kcal needs as per MSJ: 2200 (40% carb, 30% protein/fat), ( and estimated increase of + 340 rajeev for second trimester and 450 for 3rd trimester ) Est fluid needs as per 25-30 ml/d: 3100 m/dl Est min prot per day as per 1 g/kg bw: 104g/d Recommend fiber intake : 8-10 g per day and gradually increase to 25-28 g per day for women and 35-38 g for men or as tolerated Recommend sodium intake per day : less than 2000 mg Educated patient on: ( R = reviewed V = verbalizes understanding N/R = needs review N/A = not applicable * Food sources of carbohydrate, adequate serving sizes and its role in various health conditions: R * Differences between complex carbohydrates a simple carbohydrates, role of fiber in diet: R * Lean protein sources of foods: R * Differences between types of fats and role in diet (mono on saturated fat fatty acids, saturated fatty acids, trans fats): R V N/R * Food sources of sodium in salt and healthy modifications for heart health in kidney health: R V R/V * Vitamins and minerals: R - Pt on vit * Healthy plate method concept: R * Physical activity: Benefits a precaution: R- reinforced walking 20-30 min (treadmil ok ) * Nutrition Care: discussed caution with mercury, choose 8-12 oz of low mercury fish /per week, discussed calcium sources of foods, importance of food sources of b vitamin in the diet * Avoid raw /undercooked meats seafood, washed produce well before consumption. Patient Instructions: Work on balancing meals following healthy plate method have 3 meals per day and 2-3 snacks per day consisting of about 75 g of carb/3- 4 oz of protein per meal following healthy plate method and snack 0-20 g carb with at least 1 oz of protein Choose whole grain foods , choose lower fat food options Keep hydrated by having water with meals/snacks , fruit/herb infused water, omit beverages with sugars Coding Level of Care Code Nutr Indiv Intake (50475) Diagnoses Obesity (BMI 30-39.9) E66.9 Time Spent (min) 30
[2024-02-24 11:44] VITALS: BMI 36.3
[2024-03-02 12:05] VITALS: BMI 34.8
== END 2024-02-24 12:23 | disposition home or self-care (01) ==
PROVIDERS: PCP Nurse Practitioner Family; Visit Provider Dietitian, Registered
DX: E66.9 Obesity, unspecified (principal)

== ENCOUNTER → 2024-02-24 11:26 | Outpatient (BNVA) | payer OTHER, MEDICAID, SELFPAY | PROVIDERS: PCP Nurse Practitioner Family; Visit Provider Dietitian, Registered | DX: O99.211 Obesity complicating pregnancy, first trimester (principal); E66.9 Obesity, unspecified; Z3A.14 14 weeks gestation of pregnancy; Z71.3 Dietary counseling and surveillance | CPT/HCPCS: 97802 ==

== ENCOUNTER 2024-02-28 08:51 | Outpatient (REF) | payer OTHER, MEDICAID, SELFPAY ==
[2024-02-28 09:03] LABS: MANUAL DIFF FLAG NO
[2024-02-28 09:32] LABS: Basophils Percent Auto 0.5 % (0-2); Eosinophils Absolute Auto 0.1 X10*3/uL (0.0-0.4); Eosinophils Percent Auto 1.6 % (0-4); Hematocrit 37.5 % (37.0-47.0); Hemoglobin 12.7 g/dl (12.0-16.0); Imm Gran Abs Auto 0.03 X10*3/uL (0.00-0.03); Imm Gran Pct Auto 0.4 % (0.0-0.4); Lymphocytes Absolute Auto 1.7 X10*3/uL (1.2-4.9); Lymphocytes Percent Auto 21.4 % (20-40); Mean Corpuscular HGB Conc 33.9 g/dl (31.0-35.0); Mean Corpuscular Hemoglobin 29.2 pg (27.0-33.0); Mean Corpuscular Volume 86.2 fL (80.0-98.0); Mean Platelet Volume 9.8 fL (9.4-12.3); Monocytes Absolute Auto 0.3 X10*3/uL (0.1-1.2); Monocytes Percent Auto 3.4 % (2-11); Neutrophils Absolute Auto 5.9 x10*3/uL (2.0-8.3); Neutrophils Percent Auto 72.7 % (45-73); Platelet Count 282 X10*3/uL (160-400); Red Blood Count 4.35 X10*6/uL (4.20-5.50); White Blood Count 8.1 X10*3/uL (4.8-10.8)
[2024-02-28 09:40] LABS: Appearance Urine Cloudy; Color Urine Yellow; Glucose Urine UA Negative (Negative); Leukocyte Esterase Urine Moderate (2+) (Negative); Nitrite Urine Negative (Negative); Specific Gravity - Urine 1.025 (1.005-1.025); UMIC TRIGGER UACC YES; Urine Blood Negative (Negative); Urine Ketones Negative (Negative); Urine Protein Negative (Neg-Trace)
[2024-02-28 10:08] LABS: Bacteria Urine 1+ (None Seen); Hyaline Casts Urine 0-2 /LPF (0-2); RBC Urine 0-2 /HPF (0-2); Squamous Epithelial Cell Urine >20 /HPF (0-2); UACC Culture Trigger YES; WBC Urine 21-50 /HPF (0-5)
[2024-02-28 10:16] LABS: Alanine Aminotransferase 15 U/L (0-31); Albumin Level 3.7 g/dL (3.5-5.0); Alkaline Phosphatase 54 U/L (39-117); Anion Gap 10 (12-20); Aspartate Amino Transferase 16 U/L (5-31); Bilirubin Total 0.4 mg/dL (0.0-1.0); Blood Urea Nitrogen 8 mg/dL (9-16); Calcium 9.4 mg/dL (8.4-10.2); Carbon Dioxide 25 mmol/L (22-29); Chloride 105 mmol/L (96-108); Cholesterol 195 mg/dL (<200); Estimated Glomerular Filt Rate > 60; Glucose Fasting 86 mg/dL (60-99); HDL Cholesterol 77 mg/dL (>40); LDL Cholesterol Calculated 100 mg/dL (<100); Potassium 3.6 mmol/L (3.3-5.1); Sodium 136 mmol/L (135-145); Total Protein 6.7 g/dL (6.5-8.0); Triglycerides 93 mg/dL (<150)
[2024-02-28 10:22] LABS: TSH reflex Free T4 3.61 uIU/mL (0.32-4.0); Thyroid Stimulating Hormone 3.61 uIU/mL (0.32-4.0)
[2024-02-28 10:25] LABS: Free T4 (Free Thyroxine) 1.05 ng/dL (0.71-1.85)
[2024-03-02 02:08] LABS: Thyroglobulin Antibodies 1 IU/mL (< or = 1)
[2024-03-03 08:13] LABS: Triiodothyronine T3 Total 139
[2024-03-11 10:29] LABS: Thyroid Stimulating Immunoglob 213 (H)
[2024-03-11 10:30] LABS: Thyrotropin Receptor Antibody <1.00
== END 2024-02-28 08:52 | disposition home or self-care (01) ==
LOC: HO.LAB 08:51
PROVIDERS: PCP Nurse Practitioner Family; Referring Provider Nurse Practitioner Family; Visit Provider Student in an Organized Health Care Education/Training Program
DX: Z00.00 Encounter for general adult medical examination without abnormal findings (principal); O99.280 Endocrine, nutritional and metabolic diseases complicating pregnancy, unspecified trimester; E89.0 Postprocedural hypothyroidism; R82.90 Unspecified abnormal findings in urine; Z86.39 Personal history of other endocrine, nutritional and metabolic disease
CPT/HCPCS: 36415; 80053; 80061; 81001; 81003; 83520; 84436; 84439; 84443; 84445; 84480; 85025; 86800; 87086

== ENCOUNTER 2024-03-01 10:51 | Outpatient (AMB) | payer OTHER, MEDICAID, SELFPAY ==
--- NOTE | 2024-03-01 10:54 | A.OFFPC_ITS ---
Vital Signs 03/01/24 10:59 Height 5 ft 8 in Weight 236 lb BMI 35.9 BP 128/64 Blood Pressure Location Rt brachial Position Sitting Respiration 16 Pulse 98 Pulse Source Pulse Oximeter Temp 98.2 F Temp Source Oral Pulse Oximetry (%) 99 Oxygen Delivery Method Room Air Intake Visit Reasons: CPE labs review Intake Note: patient here for CPE and labs review Final Inspector And Tester Required: No Is last menstrual period known: Yes Last menstrual period: 11/17/23 Post menopausal: No Patient : Yes Allergies No Known Allergies Allergy (Verified 03/01/24 11:04) Medication List - Last Reconciled 03/01/24 by Rose Mary Blanchard CNP levothyroxine 137 mcg PO DAILY vit [id number] 27 mg iron- 800 mcg ( Vitamin) 1 tab PO DAILY Tobacco use date assessed: 03/01/24 Dental Screening Dental Screen Date: 03/01/24 Did you have a dental visit in the last 12 months?: Yes Did you have a dental problem in the last 6 months where you did not have access to dental care?: No Was dental information given to patient?: Patient has dentist HPI HPI Comments History of Present Illness Details 33-year-old female presents for an exten ded physical exam She has past medical history significant for Graves disease, hypothyroidism, and obesity She admits to taking levothyroxine 137 mcg daily without adverse reactions She admits to making healthy lifestyle changes, including diet. She has not been exercising. She sleeps well She offers no complaints and denies acute symptoms at this time She is 15 weeks without and no complication thus far. She is followed by [facility] [address] [place] Nonsmoker. Does not drink alcohol. No recreational drugs She is followed by [facility] [place] dietitian and endocrinology Last eye exam several years ago Last Pap smear test according to [facility] medical record was on 07/09/2023: No malignancy Last Tdap was in 05/27/2022 She has not been vaccinated for the flu this season, and declines the vaccine at this time [facility] Medical History (Updated 03/01/24 @ 11:28 by Rose Mary Blanchard CNP) History of Graves' disease Rhinitis Hypothyroidism associated with surgical procedure Hx of thyroid disease Miscarriage Surgical History Hx of oral surgery H/O thyroidectomy Family History (Updated 03/01/24 @ 10:58 by Rosa Rios MA) Mother High blood pressure Hypothyroidism Father No known health problems Social History Housing: Apartment Patient Tobacco Use Status: Never used Tobacco e-Cigarette/Vaping Use: Never Used Second Hand Smoke Exposure: No service: No Current occupational status: employed 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 1. Little interest or pleasure in doing things: not at all 2. Feeling down, depressed, or hopeless: several days 3. Trouble falling or staying asleep, or sleeping too much: not at all 4. Feeling tired or having little energy: not at all 5. Poor appetite or overeating: not at all 6. Feeling bad about yourself - or that you are a failure or have let yourself or your family down: not at all 7. Trouble concentrating on things, such as reading the newspaper or watching television: not at all 8. Moving or speaking so slowly that other people could have noticed. Or the opposite - being so fidgety or restless that you have been moving around a lot more than usual: not at all 9. Thoughts that you would be better off or of hurting yourself in some way: not at all Total score: 1 13219 - PHQ-9 Billing: Yes Source: Developed by Drs. Ge Piña, Andreia Dunn, Dean Bran and colleagues, with an educational gwen from [employer]. Thrive Questionnaire Date Thrive assessed: 03/01/24 I am a: Patient What is your living situation today?: I have a steady place to live Within the past 12 months, did the food you bought not last and you didn't have the money to get more?: Never true Within the past 12 months, did you worry whether your food would run out before you got money to buy more?: Never true Do you have trouble paying for medicines?: No Do you have trouble getting transportation to medical appointments?: No Do you have trouble paying your heating and electricity bill?: No Do you have trouble taking care of your child, family member or friend?: No Do you have trouble with day-to-day activities such as bathing, preparing meals, shopping, managing finances, etc.?: No Are you currently unemployed and looking for a job?: No Are you interested in more education?: No Please select the resources that you would like help with: None Currently or been in a relationship where the following occur: No concerns reported THRIVE Score: 0 AUDIT C Alcohol Use Questionnaire (AUDIT-C) 1. How often do you have a drink containing alcohol?: Never 3. How often do you have six or more drinks on one occasion?: Never Total Score: 0 Score Reviewed/Action Taken: Yes KATELIN-7 AMB Questionnaire KATELIN-7 Date KATELIN - 7 assessed: 03/01/24 Feeling nervous, anxious, or on edge: 0 = Not at all Not being able to stop or control worryin = Not at all Worrying too much about different things: 0 = Not at all Trouble relaxin = Not at all Being so restless that it is hard to sit still: 0 = Not at all Becoming easily annoyed or irritable: 0 = Not at all Feeling afraid as if something awful might happen: 0 = Not at all Total KATELIN-7 score (0-4 normal; 5-9 mild; 10-14 moderate; 15-21 severe): 0 Source: Developed by Drs. Ge Piña, Andreia Dunn, Dean Bran and colleagues, with an educational gwen from [employer]. KATELIN-7 Assessment Billing KATELIN-7 Assessment Tool: KATELIN-7 Assessment 93138 Review of Systems Const Details: Denies chills, Denies fatigue, Denies fever(s), Denies headache(s) and Denies weakness HEENT Denies change in vision, Denies dizziness, Denies headache(s), Denies hearing loss, Denies nasal congestion, Denies sinus pain, Denies sinus pressure and Denies sore throat Card Denies chest pain, Denies lightheadedness, Denies dyspnea and Denies other (palpitations) Resp Denies cough, Denies dyspnea and Denies wheezing GI Denies abdominal pain, Denies melena, Denies hematochezia, Denies change in bowel habits, Denies dyspepsia and Denies nausea Denies hematuria and Denies dysuria Musc Denies abnormal gait, Denies myalgias, Denies arthralgias, Denies numbness and Denies tingling Skin/Breast Denies rash, Denies unusual bruising and Denies wounds Neuro Denies abnormal gait, Denies dizziness, Denies headache(s), Denies memory loss, Denies numbness, Denies Sensory deficit (Neuro), Denies tingling and Denies weakness Psych Denies anxiety, Denies depression and Denies memory loss Endo Denies cold intolerance, Denies fatigue, Denies heat intolerance, Denies polydipsia and Denies polyuria Rosalio/Lymph Denies easy bleeding and Denies easy bruising Aller/Immun Denies wheezing Physical exam (Primary Care) Vital Signs: Last Vital Signs Temp 98.2 F 03/01/24 10:59 Pulse 98 03/01/24 10:59 Resp 16 03/01/24 10:59 BP 128/64 03/01/24 10:59 Pulse Ox 99 03/01/24 10:59 Oxygen Delivery Method Room Air 03/01/24 10:59 BMI result Body Mass Index 35.9 Tobacco/Smoking Status: Tobacco use Status Tobacco use date assessed 03/01/24 03/01/24 10:59 Patient Tobacco Use Status Never used Tobacco 03/01/24 10:55 e-Cigarette/Vaping Use Never Used 03/01/24 10:55 PHQ-9: PHQ-9 Score PHQ-9: Total score 1 03/01/24 11:04 Thrive Assessment: Date of Thrive Assessment Date Thrive assessed 03/01/24 03/01/24 11:04 Currently or been in a relationship where the following occur: No concerns reported Const Other: General: no acute distress, well developed, alert and awake Nutritional Appearance: well nourished Orientation/consciousness: patient oriented x3 HENMT Head: Yes normocephalic and Yes atraumatic Ears: hearing grossly normal bilaterally and TM's normal bilaterally General nose exam: Normal external nose present and Normal nares present Mouth: Normal oral and palatal mucosa present and moist mucous membranes Teeth and gingiva: dentition normal Throat: Yes oropharynx normal Eyes Pupils: Equal, round and reactive pupils present and Pupil accommodation reflex normal EOM: EOMs intact bilaterally Neck Neck: Yes normal visual inspection, Yes no lymphadenopathy and Yes trachea midline Thyroid: Thyroid normal Carotids: no bruits Lymphatic: no lymphadenopathy noted Chest Chest palpation & inspection: normal inspection of the chest Resp Effort & Inspection: normal respiratory effort Auscultation: clear to auscultation bilaterally Cardio Rate: regular rate Rhythm: regular rhythm Heart sounds: S1 normal heart sound present, S2 normal heart sound present, no gallops, no murmurs and no rubs Bruits: no abdominal aortic bruits and no carotid bruits GI Palpation (GI): No Abdominal aortic bruit present, Soft to palpation, nontender, No hepatosplenomegaly present and No Rebound tenderness present Auscultation: normal bowel sounds General: Yes no CVA tenderness Back/Spine/Pelvis Back: no CVA tenderness Cervical Spine: cervical ROM normal and No Cervical spine tenderness Thoracic/Lumbar Spine: thoraco-lumbar ROM normal, No pain with thoraco-lumbar ROM, No thoracic spinal tenderness and No lumbar spinal tenderness Skin General: warm and dry. Normal skin color. Normal skin turgor Lesions: no lesions Rashes: no rashes Trauma: no lacerations or abrasions Wounds: no wounds Nails: normal Neuro General: patient oriented x3, gait normal and CN's II-XI intact bilaterally Cranial nerves: Yes Equal, round and reactive pupils present Cognition (Neuro): normal cognition Gait exam (Neuro): Normal gait present Motor exam (neuro): 5/5 motor strength present throughout Sensory Exam: No Sensory deficit (Neuro) Deep tendon reflexes (DTR's): Right patellar reflex intensity grade: 2+ and Left patellar reflex intensity grade: 2+ Extrem General: Yes normal to inspection, No edema and No calf tenderness Psych Appearance: grossly normal Affect: normal affect Attitude: cooperative Thought process: Normal thought process present Coding Level of Care Code Est Pt Prev Care 18-39y(35396) Diagnoses Normal physical exam Z00.00 Hypothyroidism associated with surgical procedure E89.0 Eye exam, routine Z01.00 Z34.90 Additional Codes KATELIN-7 Assessment Billing - KATELIN-7 Assessment Tool: KATELIN-7 Assessment 50705 ([id number]) Assessment & Plan Assessment & Plan (1) Normal physical exam: Code(s): Z00.00 - Encounter for general adult medical examination without abnormal findings Category: Medical Plan: No significant functional limitations noted Continue current treatment regimen Healthy diet and routine exercise encouraged Follow-up with electrical worker, endocrinology, and dietitian as planned Advised to schedule her next physical exam Return with symptoms or concerns Verbalized understanding and agreed with the treatment plan (2) Hypothyroidism associated with surgical procedure: Code(s): E89.0 - Postprocedural hypothyroidism Category: Medical Plan: Recent TSH/T4 level is normal Continue current treatment regimen Follow-up with endocrinology as planned and with PCP after discharge from endocrinology Verbalized understanding and agreed with the plan (3) Eye exam, routine: Code(s): Z01.00 - Encounter for examination of eyes and vision without abnormal findings Category: Medical Plan: Her last eye exam was several years ago Referred to Ophthalmology for routine eye exam (4) : Code(s): Z34.90 - Encounter for supervision of normal , unspecified, unspecified trimester Category: Medical Plan: She is 15 weeks with no complications thus far Follow-up with electrical worker as planned Verbalized understanding and agreed with the plan Orders: Referrals Ophthalmology Referral Z01.00 - Encounter for examination of eyes and vision without abnormal findings
[2024-03-01 10:59] VITALS: BP 128/64; PULSE 98; RESP 16; TEMP 36.8; O2SAT 99; BMI 35.9
== END 2024-03-01 11:28 | disposition home or self-care (01) ==
PROVIDERS: PCP Nurse Practitioner Family; Visit Provider Nurse Practitioner Family
DX: Z00.00 Encounter for general adult medical examination without abnormal findings (principal); E89.0 Postprocedural hypothyroidism; Z3A.15 15 weeks gestation of pregnancy

== ENCOUNTER → 2024-03-01 10:51 | Outpatient (BNVA) | payer OTHER, MEDICAID, SELFPAY | PROVIDERS: PCP Nurse Practitioner Family; Visit Provider Nurse Practitioner Family | DX: Z00.00 Encounter for general adult medical examination without abnormal findings (principal); O99.282 Endocrine, nutritional and metabolic diseases complicating pregnancy, second trimester; E89.0 Postprocedural hypothyroidism; Z3A.15 15 weeks gestation of pregnancy | CPT/HCPCS: 96127 ==

== ENCOUNTER 2024-04-05 08:42 | Outpatient (REF) | payer OTHER, MEDICAID, SELFPAY ==
[2024-04-05 09:37] LABS: Appearance Urine Clear; Color Urine Yellow; Glucose Urine UA Negative (Negative); Leukocyte Esterase Urine Trace (Negative); Nitrite Urine Negative (Negative); Specific Gravity - Urine >= 1.030 (1.005-1.025); UMIC TRIGGER UACC YES; Urine Blood Negative (Negative); Urine Ketones Negative (Negative); Urine Protein Trace mg/dL (Neg-Trace)
[2024-04-05 09:42] LABS: Bacteria Urine 1+ (None Seen); Hyaline Casts Urine 0-2 /LPF (0-2); RBC Urine 0-2 /HPF (0-2); UACC Culture Trigger YES
[2024-04-05 10:02] LABS: Free T4 (Free Thyroxine) 1.02 ng/dL (0.71-1.85); Thyroid Stimulating Hormone 2.28 uIU/mL (0.32-4.0)
[2024-04-05 10:39] LABS: T4 Thyroxine 13.4 ug/dL (4.5-12.0)
[2024-04-06 08:28] LABS: Triiodothyronine T3 Total 155 ng/dL (76-181)
== END 2024-04-05 08:43 | disposition home or self-care (01) ==
LOC: HO.LAB 08:42
PROVIDERS: PCP Nurse Practitioner Family; Visit Provider Student in an Organized Health Care Education/Training Program
DX: Z34.90 Encounter for supervision of normal pregnancy, unspecified, unspecified trimester (principal); Z86.39 Personal history of other endocrine, nutritional and metabolic disease
CPT/HCPCS: 36415; 81001; 84436; 84439; 84443; 84480; 87086; 87088; 87186

== ENCOUNTER 2024-04-12 10:16 | Outpatient (AMB) | payer OTHER, MEDICAID, SELFPAY ==
--- NOTE | 2024-04-12 10:37 | A.OFFVIS_ITS ---
VS Expanded 04/12/24 10:38 Height 5 ft 8 in Weight 234 lb 9.149 oz BMI 35.7 Intake Visit Reasons: Obesity//CONFIRMED Allergies No Known Allergies Allergy (Verified 03/01/24 11:04) Nutrition Presentation Details: Pt presents for MNT f/u for obesity with pregancy Pt reports feeling great, working on including a variety of foods and incorporating foods rich in fiber BS Monitoring Most Recent Diabetes Results: Cholesterol 195 mg/dL (<200) 02/28/24 HDL Cholesterol 77 mg/dL (>40) 02/28/24 Triglycerides 93 mg/dL (<150) 02/28/24 Creatinine 0.67 mg/dL (0.5-1.4) 02/28/24 Blood Urea Nitrogen 8 mg/dL (9-16) L 02/28/24 Sodium 136 mmol/L (135-145) 02/28/24 Potassium 3.6 mmol/L (3.3-5.1) 02/28/24 Chloride 105 mmol/L (96-108) 02/28/24 Carbon Dioxide 25 mmol/L (22-29) 02/28/24 Calcium 9.4 mg/dL (8.4-10.2) 02/28/24 AST 16 U/L (5-31) 02/28/24 ALT 15 U/L (0-31) 02/28/24 Total Protein 6.7 g/dL (6.5-8.0) 02/28/24 Albumin 3.7 g/dL (3.5-5.0) 02/28/24 [facility] Medical History (Updated 03/01/24 @ 11:28 by Rose Mary Blanchard CNP) History of Graves' disease Rhinitis Hypothyroidism associated with surgical procedure Hx of thyroid disease Miscarriage Surgical History Hx of oral surgery H/O thyroidectomy Family History (Updated 03/01/24 @ 10:58 by Rosa Rios MA) Mother High blood pressure Hypothyroidism Father No known health problems Social History Housing: Apartment Patient Tobacco Use Status: Never used Tobacco e-Cigarette/Vaping Use: Never Used Second Hand Smoke Exposure: No service: No Current occupational status: employed 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 [employer]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 ( [employer]) Current occupational exposures/hazards: No Cognitive needs: No Hearing needs: No Vision needs: No Assessment & Plan Assessment & Plan (1) Obesity (BMI 30-39.9): Comment: Pt 14 wks Code(s): E66.9 - Obesity, unspecified Category: Medical Plan: SAJI 08/24/2023 Pregravid weight : 231 lbs wt at 14 wks preg 229 lbs , 234 lbs Expected weight gain throughout : < 15 lbs Wt: 104 Kg ( 02/2024 ) Est kcal needs as per MSJ: 2200 (40% carb, 30% protein/fat), ( and estimated increase of + 340 rajeev for second trimester and 450 for 3rd trimester ) Est fluid needs as per 25-30 ml/d: 3100 m/dl Est min prot per day as per 1 g/kg bw: 104g/d Recommend fiber intake : 8-10 g per day and gradually increase to 25-28 g per day for women and 35-38 g for men or as tolerated Recommend sodium intake per day : less than 2000 mg Educated patient on: ( R = reviewed V = verbalizes understanding N/R = needs review N/A = not applicable * Food sources of carbohydrate, adequate serving sizes and its role in various health conditions: R * Differences between complex carbohydrates a simple carbohydrates, role of fiber in diet: R * Lean protein sources of foods: R * Differences between types of fats and role in diet (mono on saturated fat fatty acids, saturated fatty acids, trans fats): R V N/R * Food sources of sodium in salt and healthy modifications for heart health in kidney health: R V R/V * Vitamins and minerals: R - Pt on vit * Healthy plate method concept: R * Physical activity: Benefits a precaution: R- reinforced walking 20-30 min (treadmil ok ) * Nutrition Care: discussed caution with mercury, choose 8-12 oz of low mercury fish /per week, discussed calcium sources of foods, importance of food sources of b vitamin in the diet * Avoid raw /undercooked meats seafood, washed produce well before consumption. Patient Instructions: Incorporate foods with calicium n your diet (goal 1200 mg Calcium per day) yogurt, seeds milk atlernatives fortified with calcium, chickpeas, Coding Level of Care Code Nutr Indiv Subseq (08588) Diagnoses Obesity (BMI 30-39.9) E66.9 Time Spent (min) 20
[2024-04-12 10:38] VITALS: BMI 35.7
== END 2024-04-12 11:11 | disposition home or self-care (01) ==
PROVIDERS: PCP Nurse Practitioner Family; Visit Provider Dietitian, Registered
DX: E66.9 Obesity, unspecified (principal)

== ENCOUNTER → 2024-04-12 10:16 | Outpatient (BNVA) | payer OTHER, MEDICAID, SELFPAY | PROVIDERS: PCP Nurse Practitioner Family; Visit Provider Dietitian, Registered | DX: O99.211 Obesity complicating pregnancy, first trimester (principal); E66.9 Obesity, unspecified; Z3A.14 14 weeks gestation of pregnancy; Z71.3 Dietary counseling and surveillance | CPT/HCPCS: 97803 ==

== ENCOUNTER 2024-05-03 09:28 | Outpatient (REF) | payer OTHER, MEDICAID, SELFPAY ==
[2024-05-03 12:01] LABS: Thyroid Stimulating Hormone 2.47 uIU/mL (0.32-4.0)
[2024-05-04 19:18] LABS: Triiodothyronine T3 Total 156 ng/dL (76-181)
[2024-05-06 18:08] LABS: Thyrotropin Receptor Antibody 1.23 IU/L (<=2.00)
[2024-05-07 16:13] LABS: Thyroid Stimulating Immunoglob 162 % baseline (<140)
== END 2024-05-03 09:29 | disposition home or self-care (01) ==
LOC: HO.LAB 09:28
PROVIDERS: PCP Nurse Practitioner Family; Visit Provider Student in an Organized Health Care Education/Training Program
DX: Z34.90 Encounter for supervision of normal pregnancy, unspecified, unspecified trimester (principal); Z86.39 Personal history of other endocrine, nutritional and metabolic disease; E89.0 Postprocedural hypothyroidism
CPT/HCPCS: 36415; 83520; 84436; 84439; 84443; 84445; 84480

== ENCOUNTER 2024-05-17 09:03 | Outpatient (AMB) | payer OTHER, MEDICAID, SELFPAY ==
[2024-05-17 09:05] VITALS: BP 110/58; PULSE 90; BMI 36.9
--- NOTE | 2024-05-17 09:05 | A.OFFVIS_ITS ---
Vital Signs 05/17/24 09:05 Height 5 ft 8 in Weight 242 lb 15.19 oz BMI 36.9 BP 110/58 L Blood Pressure Location Lt brachial Position Sitting Pulse 90 Pulse Source Pulse Oximeter Intake Visit Reasons: hypothyroidism during Intake Note: Patient present today for hypothyroidism during office visit. 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 vit [id number] 27 mg iron- 800 mcg ( Vitamin) 1 tab PO DAILY HPI Comments Details: 33 YO F with history of Graves disease status post thyroidectomy, now followed for postsurgical hypothyroidism who is currently . 3 para 1 HPIfrom prior visit First diagnosed with grave's DX in 2017 with labs revealing hyperthyroidism . Treated medically then surgery . [place] the records are not available. Had surgery 12/10/17 total thyroidectomy with benign pathology The patient has emailed note from the provider in [facility] stating that the pathology showed follicular hyperplasia Currently 13 weeks , has a boy who is 18 months old now, a miscarriage before that Due date August 23 2024 Planning to breast feed No problems with before this, fetus did not develop hyperthyroidism, no issues of thyroid disease in the child. 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 Dosage increased to 137 mcg daily 12/30/23 when TSH was noted to be 5.09 03/03/24: results of your thyroid function testing showed that your TSH is 3.61. You must be at 15 weeks of right now. In the 2nd trimester we like to keep TSH between 0.2-3. Please increase your levothyroxine to 137 mcg 1 tablet from Friday to Friday daily and then 1.5 tablet on Sundays. . Interval history 05/17/24 26 weeks today , currently taking 137 mcg daily from Fri to Friday and 1.5 pills on Friday Labs 05/03/2024 showed TSH of 2.47, free T4 of 1.20, T4 14, total T3 156. TSI antibodies 162 elevated, TSH receptor antibody 1.23. Tirdenss is improved. Gaining weight during . c/o -cold intolerance, -dry skin, -hair loss, -constipation. Next US Jun 2024 for growth scan , following with maternal medicine Mother has hypothyroidism Biotin: No Review of systems Constitutional: no fevers, chills or weight loss HEENT: no changes in vision Cardiac: No chest pain, discomfort or palpitations. Pulmonary: No SOB GI:No abdominal pain, no nausea or vomiting, no anorexia, no blood in stool : no burning micturition, dysuria or increase in urinary frequency Physical exam General: sitting comfortably in no acute distress HEENT: normocephalic/atraumatic Neck: supple, symmetrical, no thyromegaly , no dorsocervical or supraclavicular fat pads Cardiac: normal heart sounds Pulm: normal breath sounds B/L, no added breath sounds Abd: gravid abdomen Extremities: no edema, no signs of myxedema Neuro: AAO x3, Speech: normal, no facial droop, moving all 4 extremities Laboratory Tests 01/12/22 02/12/22 03/14/22 08:40 09:50 09:00 TSH 17.94 H 2.67 2.54 Free T4 1.10 1.17 Thyroxine (T4) Total T3 Thyroid Stim Immunoglob TSH Receptor Ab <1.00 Thyroglobulin Antibody 04/16/22 06/10/22 07/10/22 09:10 09:43 07:41 TSH 2.22 5.82 H 1.96 Free T4 1.01 0.93 0.89 Thyroxine (T4) Total T3 Thyroid Stim Immunoglob TSH Receptor Ab Thyroglobulin Antibody 09/12/22 10/25/22 02/03/23 09:23 09:35 11:03 TSH 1.08 0.53 Free T4 1.23 0.92 Thyroxine (T4) Total T3 Thyroid Stim Immunoglob TSH Receptor Ab Thyroglobulin Antibody 08/18/23 12/30/23 01/29/24 09:02 08:45 08:52 TSH 2.86 5.09 H 1.51 Free T4 0.82 1.10 Thyroxine (T4) Total T3 Thyroid Stim Immunoglob TSH Receptor Ab Thyroglobulin Antibody 02/28/24 04/05/24 05/03/24 09:03 08:50 09:39 TSH 3.61 2.28 2.47 Free T4 1.05 1.02 1.20 Thyroxine (T4) 13.4 H 14.0 H Total T3 139 155 156 Thyroid Stim Immunoglob 162 H TSH Receptor Ab <1.00 1.23 Thyroglobulin Antibody 1 PFSH Medical History (Updated 03/01/24 @ 11:28 by Rose Mary Blanchard CNP) History of Graves' disease Rhinitis Hypothyroidism associated with surgical procedure Hx of thyroid disease Miscarriage Surgical History Hx of oral surgery H/O thyroidectomy Family History (Updated 03/01/24 @ 10:58 by Rosa Rios MA) Mother High blood pressure Hypothyroidism Father No known health problems Social History Housing: Apartment Patient Tobacco Use Status: Never used Tobacco e-Cigarette/Vaping Use: Never Used Second Hand Smoke Exposure: No service: No Current occupational status: employed 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 Currently on levothyroxine 137 mcg 7.5 pills a week. Labs 05/03/2024 showed TSH of 2.47, free T4 of 1.20, T4 14, total T3 156. TSI antibodies 162 elevated, TSH receptor antibody 1.23. I do not see trimester specific ranges given in the lab. Hence we follow as generally guideline for TSH during the 1st trimester is usually supposed to be between 0.2-2.5, TSH in the 2nd trimester aim for 0.2-3 and in the 3rd trimester 0.3-3. She is within goal. Total T4 slightly elevated also within goal which is 1-1-1/2 times of normal range during . Given that she has a history of Graves disease, we have also been monitoring her thyrotropin receptor antibodies which are normal, TSI antibodies mildly elevated. These only concerning on elevated 2-3 times above the upper limit of normal however regardless we have been keeping her informed and she communicates these results to Maternal- Medicine who have been monitoring her closely.. Plan: -continue levothyroxine 137 mcg 7.5 pills a week -repeat TSH, free T4 in 4 weeks from last set of labs 05/03/2024 -follow up in 3 months Plan See above Patient Instructions: Do blood work May 31 2024 Follow up in 3 months Continue levothyroxine 137 mcg Friday to Friday 1 pill and 1.5 pills on Friday Coding Level of Care Code Est Pt Level 3 (93545) Diagnoses Hypothyroidism associated with surgical procedure E89.0
== END 2024-05-17 09:25 | disposition home or self-care (01) ==
PROVIDERS: PCP Nurse Practitioner Family; Visit Provider Student in an Organized Health Care Education/Training Program
DX: E89.0 Postprocedural hypothyroidism (principal)
CPT/HCPCS: 99213

== ENCOUNTER → 2024-05-17 09:03 | Outpatient (BNVA) | payer OTHER, MEDICAID, SELFPAY | PROVIDERS: PCP Nurse Practitioner Family; Visit Provider Student in an Organized Health Care Education/Training Program ==

== ENCOUNTER 2024-06-02 11:35 | Outpatient (REF) | payer OTHER, MEDICAID, SELFPAY ==
[2024-06-02 13:02] LABS: Free T4 (Free Thyroxine) 0.96 ng/dL (0.71-1.85); T4 Thyroxine 12.9 ug/dL (4.5-12.0); Thyroid Stimulating Hormone 3.57 uIU/mL (0.32-4.0)
[2024-06-03 18:38] LABS: Triiodothyronine T3 Total 152 ng/dL (76-181)
== END 2024-06-02 11:36 | disposition home or self-care (01) ==
LOC: HO.LAB 11:35
PROVIDERS: PCP Nurse Practitioner Family; Visit Provider Student in an Organized Health Care Education/Training Program
DX: O99.280 Endocrine, nutritional and metabolic diseases complicating pregnancy, unspecified trimester (principal); E89.0 Postprocedural hypothyroidism; Z86.39 Personal history of other endocrine, nutritional and metabolic disease
CPT/HCPCS: 36415; 84436; 84439; 84443; 84480

== ENCOUNTER 2024-07-08 08:52 | Outpatient (REF) | payer OTHER, MEDICAID, SELFPAY ==
[2024-07-08 10:52] LABS: Free T4 (Free Thyroxine) 1.06 ng/dL (0.71-1.85); T4 Thyroxine 14.2 ug/dL (4.5-12.0); Thyroid Stimulating Hormone 1.76 uIU/mL (0.32-4.0)
[2024-07-09 18:13] LABS: Triiodothyronine T3 Total 148 ng/dL (76-181)
== END 2024-07-08 08:53 | disposition home or self-care (01) ==
LOC: HO.LAB 08:52
PROVIDERS: PCP Nurse Practitioner Family; Visit Provider Student in an Organized Health Care Education/Training Program
DX: Z34.90 Encounter for supervision of normal pregnancy, unspecified, unspecified trimester (principal); E89.0 Postprocedural hypothyroidism; Z86.39 Personal history of other endocrine, nutritional and metabolic disease
CPT/HCPCS: 36415; 84436; 84439; 84443; 84480

== ENCOUNTER 2024-08-05 09:21 | Outpatient (REF) | payer OTHER, MEDICAID, SELFPAY ==
[2024-08-05 11:18] LABS: Free T4 (Free Thyroxine) 1.05 ng/dL (0.71-1.85); T4 Thyroxine 15.2 ug/dL (4.5-12.0); Thyroid Stimulating Hormone 1.83 uIU/mL (0.32-4.0)
[2024-08-06 08:53] LABS: Triiodothyronine T3 Free 2.3 pg/mL (2.3-4.2); Triiodothyronine T3 Total 145 ng/dL (76-181)
== END 2024-08-05 09:22 | disposition home or self-care (01) ==
LOC: HO.LAB 09:21
PROVIDERS: PCP Nurse Practitioner Family; Visit Provider Student in an Organized Health Care Education/Training Program
DX: Z34.90 Encounter for supervision of normal pregnancy, unspecified, unspecified trimester (principal); E89.0 Postprocedural hypothyroidism
CPT/HCPCS: 36415; 84436; 84439; 84443; 84480; 84481

== ENCOUNTER 2024-08-12 08:56 | Outpatient (REF) | payer OTHER, MEDICAID, SELFPAY ==
[2024-08-18 19:19] LABS: Thyroid Stimulating Immunoglob 113 % baseline (<140); Thyrotropin Receptor Antibody <1.00 IU/L (<=2.00)
== END 2024-08-12 08:57 | disposition home or self-care (01) ==
LOC: HO.LAB 08:56
PROVIDERS: PCP Nurse Practitioner Family; Visit Provider Student in an Organized Health Care Education/Training Program
DX: Z34.90 Encounter for supervision of normal pregnancy, unspecified, unspecified trimester (principal); E89.0 Postprocedural hypothyroidism
CPT/HCPCS: 36415; 83520; 84445

== ENCOUNTER 2024-10-09 09:13 | Outpatient (REF) | payer OTHER, MEDICAID, SELFPAY ==
[2024-10-09 09:59] LABS: Appearance Urine Clear; Color Urine Yellow; Glucose Urine UA Negative (Negative); Leukocyte Esterase Urine Negative (Negative); Nitrite Urine Negative (Negative); PH 5.5 (5.0-9.0); Specific Gravity - Urine 1.015 (1.005-1.025); Urine Blood Negative (Negative); Urine Ketones Negative (Negative); Urine Protein Negative (Neg-Trace)
[2024-10-09 10:45] LABS: Free T4 (Free Thyroxine) 1.32 ng/dL (0.71-1.85); Thyroid Stimulating Hormone 0.02 uIU/mL (0.32-4.0)
[2024-10-11 16:13] LABS: Triiodothyronine T3 Total 115 ng/dL (76-181)
== END 2024-10-09 09:14 | disposition home or self-care (01) ==
LOC: HO.LAB 09:13
PROVIDERS: PCP Nurse Practitioner Family; Visit Provider Student in an Organized Health Care Education/Training Program
DX: Z00.00 Encounter for general adult medical examination without abnormal findings (principal); E89.0 Postprocedural hypothyroidism
CPT/HCPCS: 36415; 81003; 84439; 84443; 84480

== ENCOUNTER 2024-10-12 12:24 | Outpatient (AMB) | payer OTHER, MEDICAID, SELFPAY ==
--- NOTE | 2024-10-12 12:27 | A.OFFVIS_ITS ---
Vital Signs 10/12/24 12:28 Height 5 ft 8 in Weight 234 lb 5.622 oz BMI 35.6 BP 114/82 Blood Pressure Location Lt brachial Position Sitting Pulse 79 Pulse Source Pulse Oximeter Pulse Oximetry (%) 95 Oxygen Delivery Method Room Air Intake Visit Reasons: hypothyroidism Intake Note: Patient present today for hypothyroidism office visit. Field Assistant Required: No Accompanied by: Self / Same As Patient Allergies No Known Allergies Allergy (Verified 10/12/24 12:32) Medication List - Last Reconciled 10/12/24 by Rhianna Nix MD amoxicillin-pot clavulanate 875-125 mg 1 tab PO Q12H levothyroxine 125 mcg PO DAILY vit no.[id number] 27 mg iron- 800 mcg ( Vitamin) 1 tab PO DAILY HPI Comments Details: 33 YO F with history of Graves disease status post thyroidectomy, now followed for postsurgical hypothyroidism HPIfrom prior visit First diagnosed with grave's DX in 2017 with labs revealing hyperthyroidism . Treated medically then surgery . Surgery was [place] the country the records are not available. Had surgery 12/10/17 total thyroidectomy with benign pathology The patient has emailed note from the provider in [facility] stating that the pathology showed follicular hyperplasia Currently 13 weeks , has a boy who is 18 months old now, a miscarriage before that Due date August 23 2024 Planning to breast feed No problems with before this, fetus did not develop hyperthyroidism, no issues of thyroid disease in the child. 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 Dose was uptitrated in Interval history 10/12/24 2 months post now, had healthy baby girl Diana () with normal thyroid function Gave 08/14/24; prior to delivery dose was 150 from Friday to Friday and 1 and half pill on Sundays After delivery dose reduced to 125 mcg daily which she is currently on Labs 10/12/24 showed TSH of 0.02 , free t4 1.32 no loose stools, no tremors , no palpitation Breast feeding Mother has hypothyroidism Biotin: No Physical exam General: sitting comfortably in no acute distress HEENT: normocephalic/atraumatic Neck: supple, symmetrical, no thyromegaly , no dorsocervical or supraclavicular fat pads Cardiac: normal heart sounds Pulm: normal breath sounds B/L, no added breath sounds Abd: gravid abdomen Extremities: no edema, no signs of myxedema Neuro: AAO x3, Speech: normal, no facial droop, moving all 4 extremities Laboratory Tests Laboratory Tests 01/12/22 02/12/22 03/14/22 08:40 09:50 09:00 TSH 17.94 H 2.67 2.54 Free T4 1.10 1.17 Thyroxine (T4) Total T3 Free T3 Thyroid Stim Immunoglob 04/16/22 06/10/22 07/10/22 09:10 09:43 07:41 TSH 2.22 5.82 H 1.96 Free T4 1.01 0.93 0.89 Thyroxine (T4) Total T3 Free T3 Thyroid Stim Immunoglob 09/12/22 10/25/22 02/03/23 09:23 09:35 11:03 TSH 1.08 0.53 Free T4 1.23 0.92 Thyroxine (T4) Total T3 Free T3 Thyroid Stim Immunoglob 08/18/23 12/30/23 01/29/24 09:02 08:45 08:52 TSH 2.86 5.09 H 1.51 Free T4 0.82 1.10 Thyroxine (T4) Total T3 Free T3 Thyroid Stim Immunoglob 05/03/24 06/02/24 07/08/24 09:39 11:46 09:02 TSH 2.47 3.57 1.76 Free T4 1.20 0.96 1.06 Thyroxine (T4) 14.0 H 12.9 H 14.2 H Total T3 156 152 148 Free T3 Thyroid Stim Immunoglob 162 H 08/05/24 08/12/24 10/09/24 09:36 09:04 09:28 TSH 1.83 0.02 L Free T4 1.05 1.32 Thyroxine (T4) 15.2 H Total T3 145 115 Free T3 2.3 Thyroid Stim Immunoglob 113 PFSH Medical History (Updated 03/01/24 @ 11:28 by Rose Mary Blanchard CNP) History of Graves' disease Rhinitis Hypothyroidism associated with surgical procedure Hx of thyroid disease Miscarriage Surgical History Hx of oral surgery H/O thyroidectomy Family History Mother High blood pressure Hypothyroidism Father No known health problems Social History Housing: Apartment Patient Tobacco Use Status: Never used Tobacco e-Cigarette/Vaping Use: Never Used Second Hand Smoke Exposure: No service: No Current occupational status: employed 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[employer]) Current occupational exposures/hazards: No Cognitive needs: No Hearing needs: No Vision needs: No Physical Exam Vital Signs: Last Vital Signs Pulse 79 10/12/24 12:28 BP 114/82 10/12/24 12:28 Pulse Ox 95 10/12/24 12:28 Oxygen Delivery Method Room Air 10/12/24 12:28 BMI result Body Mass Index 35.6 Assessment & Plan Assessment & Plan (1) Hypothyroidism associated with surgical procedure: Code(s): E89.0 - Postprocedural hypothyroidism Category: Medical Plan: Patient with a history of Graves disease diagnosed in 2017, who underwent total thyroidectomy in 2018 with benign pathology, now followed for postsurgical hypothyroidism who is currently 2 months .. Currently on levothyroxine 125 mcg daily, dose was reduced on 08/14/2024. Labs done most recently on 10/09/2024 showed TSH of 0.02 which is low, free T4 at the higher end of normal 1.32. At this point we will go down to levothyroxine 100 mcg daily. This was her prepregnancy dose as well. Plan: -decrease levothyroxine to 100 mcg daily -do TSH, free T4 in 6 weeks, we will reach out with the results -follow up in 6-8 months Plan See above Orders: Orders Thyroid Stimulating Hormone 6 Weeks E89.0 - Postprocedural hypothyroidism Free T4 (Free Thyroxine) 6 Weeks E89.0 - Postprocedural hypothyroidism Medications: New levothyroxine 100 mcg PO DAILY 30 tabs 6RF Discontinued levothyroxine Discontinued Reason: Doctor's Order 125 mcg PO DAILY 30 tabs 5RF Patient Instructions: Decrease levothyroxine to 100 mcg daily Do blood work in 6 weeks, we will reach out with results Follow up in 8 months Coding Level of Care Code Est Pt Level 4 (87182) Diagnoses Hypothyroidism associated with surgical procedure E89.0 Time Spent (min) 30
[2024-10-12 12:28] VITALS: BP 114/82; PULSE 79; O2SAT 95; BMI 35.6
== END 2024-10-12 12:48 | disposition home or self-care (01) ==
LOC: HO.ENCR 12:25
PROVIDERS: PCP Nurse Practitioner Family; Visit Provider Student in an Organized Health Care Education/Training Program
DX: E89.0 Postprocedural hypothyroidism (principal)
CPT/HCPCS: 99214

== ENCOUNTER 2024-12-02 09:45 | Outpatient (REF) | payer OTHER, MEDICAID, SELFPAY ==
[2024-12-02 11:58] LABS: Free T4 (Free Thyroxine) 1.25 ng/dL (0.71-1.85); Thyroid Stimulating Hormone 0.25 uIU/mL (0.32-4.0)
== END 2024-12-02 09:46 | disposition home or self-care (01) ==
LOC: HO.LAB 09:45
PROVIDERS: PCP Nurse Practitioner Family; Visit Provider Student in an Organized Health Care Education/Training Program
DX: E89.0 Postprocedural hypothyroidism (principal)
CPT/HCPCS: 36415; 84439; 84443

== ENCOUNTER 2025-02-10 09:07 | Outpatient (REF) | payer OTHER, MEDICAID, SELFPAY ==
[2025-02-10 10:14] LABS: Free T4 (Free Thyroxine) 1.09 ng/dL (0.71-1.85); Thyroid Stimulating Hormone 1.06 uIU/mL (0.32-4.0)
== END 2025-02-10 09:08 | disposition home or self-care (01) ==
LOC: HO.LAB 09:07
PROVIDERS: PCP Nurse Practitioner Family; Visit Provider Student in an Organized Health Care Education/Training Program
DX: E89.0 Postprocedural hypothyroidism (principal)
CPT/HCPCS: 36415; 84439; 84443; 84480

== ENCOUNTER 2025-03-04 10:20 | Outpatient (AMB) | payer OTHER, MEDICAID, SELFPAY ==
--- NOTE | 2025-03-04 10:22 | A.OFFPC_ITS ---
Vital Signs 03/04/25 10:30 Height 5 ft 8 in Weight 236 lb 2 oz BMI 35.9 BP 130/59 L Blood Pressure Location Rt brachial Position Sitting Respiration 16 Pulse 70 Pulse Source Pulse Oximeter Temp 98.2 F Temp Source Oral Pulse Oximetry (%) 98 Oxygen Delivery Method Room Air Intake Visit Reasons: Annual Physical Intake Note: patient here for CPE Video Game Tester Required: No Is last menstrual period known: Yes Last menstrual period: 02/23/25 Post menopausal: No Patient : No Allergies No Known Allergies Allergy (Verified 03/04/25 10:35) Medication List - Last Reconciled 03/04/25 by Rose Mary Blanchard CNP levothyroxine 100 mcg PO DAILY Tobacco use date assessed: 03/04/25 Dental Screening Dental Screen Date: 03/04/25 Did you have a dental visit in the last 12 months?: No Did you have a dental problem in the last 6 months where you did not have access to dental care?: No Was dental information given to patient?: Patient has dentist HPI HPI Comments History of Present Illness Details 34-year-old female presents for an exten ded physical exam. She admits to taking levothyroxine 100 mcg daily without adverse reactions. Acute issue(s) She reports reports persistent moderate to severe anxiety and depressive symptoms for the past one month. She easily irritable, tired, lack of focus, and unable to rest. She has two children, a boy and girl, 2 and half years and 6 months respectively. She notes that her current mental health may be affected by depression, returning to work from maternity leave, and immigration issues. 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 She feels overwhelmed with work. She is from the [place] on a working visa and in the process of obtaining permanent residence in the [facility]. Her is supportive. However, she does not have family around to provide academic assistant. She had psychotherapy once monthly monthly for 3-4 months. She stopped receiving therapy after her therapist relocated to a different State in 07/23/2024. She want to reestablish with a new therapist. She has never taken psychotropic medications. She is not interested in taking psychotropic medications at this time; I don't think i am at that level yet. I prefer natural approach first. She denies SI/HI. Past Medical History - Graves disease, hypothyroidism, and ob esity Social History - Nonsmoker. Does not vape. Does not dri nk alcohol. Denies recreational drug use - Generally makes healthy dietary choice s but has been eating more fast/restaurant meals lately. Active but does not exercise. Generally sleep well Health maintenance - Last eye exam was several years ago. R eferred to Ophthalmology for routine eye exam - Last dental visit was in 10/2023; elsa raged to schedule an appointment with his dentist for routine dental care - Last Tdap was in 05/27/2022 - Has not been vaccinated for the flu ; she intends to get the vaccine soon - Last pap smear test was in 02/2024 wit [facility] Operations Vocational Instructor: Normal. 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 1. Little interest or pleasure in doing things: nearly every day 2. Feeling down, depressed, or hopeless: nearly every day 3. Trouble falling or staying asleep, or sleeping too much: several days 4. Feeling tired or having little energy: nearly every day 5. Poor appetite or overeating: several days 6. Feeling bad about yourself - or that you are a failure or have let yourself or your family down: more than half the days 7. Trouble concentrating on things, such as reading the newspaper or watching television: more than half the days 8. Moving or speaking so slowly that other people could have noticed. Or the opposite - being so fidgety or restless that you have been moving around a lot more than usual: several days 9. Thoughts that you would be better off or of hurting yourself in some way: not at all Total score: 16 Depression Screening Interpretation: Positive Depression Screening Follow-up: Community Mental Health Worker F/U Depression Screening Done: Yes 98150 - PHQ-9 Billing: Yes Source: Developed by Drs. Ge Piña, Andreia Dunn, Dean Bran and colleagues, with an educational gwen from [employer]. Thrive Questionnaire Date Thrive assessed: 03/04/25 I am a: Patient What is your living situation today?: I have a steady place to live Within the past 12 months, did the food you bought not last and you didn't have the money to get more?: Never true Within the past 12 months, did you worry whether your food would run out before you got money to buy more?: Never true Do you have trouble paying for medicines?: No Do you have trouble getting transportation to medical appointments?: No Do you have trouble paying your heating and electricity bill?: No Do you have trouble taking care of your child, family member or friend?: No Do you have trouble with day-to-day activities such as bathing, preparing meals, shopping, managing finances, etc.?: Yes Are you currently unemployed and looking for a job?: No Are you interested in more education?: No Please select the resources that you would like help with: None Currently or been in a relationship where the following occur: No concerns reported THRIVE Score: 0 AUDIT C Alcohol Use Questionnaire (AUDIT-C) 1. How often do you have a drink containing alcohol?: Never 3. How often do you have six or more drinks on one occasion?: Never Total Score: 0 Score Reviewed/Action Taken: Yes KATELIN-7 AMB Questionnaire KATELIN-7 Date KATELIN - 7 assessed: 03/04/25 Feeling nervous, anxious, or on edge: 2 = More than half the days Not being able to stop or control worryin = Several days Worrying too much about different things: 3 = Nearly every day Trouble relaxin = More than half the days Being so restless that it is hard to sit still: 1 = Several days Becoming easily annoyed or irritable: 3 = Nearly every day Feeling afraid as if something awful might happen: 1 = Several days Total KATELIN-7 score (0-4 normal; 5-9 mild; 10-14 moderate; 15-21 severe): 13 Source: Developed by Drs. Ge Piña, Andreia Dunn, Dean Bran and colleagues, with an educational gwen from [employer]. KATELIN-7 Assessment Billing KATELIN-7 Assessment Tool: KATELIN-7 Assessment 22718 Review of Systems Const Details: Denies chills, Denies fatigue, Denies fever(s), Denies headache(s) and Denies weakness HEENT Denies change in vision, Denies dizziness, Denies headache(s), Denies hearing loss, Denies nasal congestion, Denies sinus pain, Denies sinus pressure and Denies sore throat Card Denies chest pain, Denies lightheadedness, Denies dyspnea and Denies other (palpitations) Resp Denies cough, Denies dyspnea and Denies wheezing GI Denies abdominal pain, Denies melena, Denies hematochezia, Denies change in bowel habits, Denies dyspepsia and Denies nausea Denies hematuria and Denies dysuria Musc Denies abnormal gait, Denies myalgias, Denies arthralgias, Denies numbness and Denies tingling Skin/Breast Denies rash, Denies unusual bruising and Denies wounds Neuro Denies abnormal gait, Denies dizziness, Denies headache(s), Denies memory loss, Denies numbness, Denies Sensory deficit (Neuro), Denies tingling and Denies weakness Psych Reports anxiety, Reports depression and Denies memory loss Endo Denies cold intolerance, Denies fatigue, Denies heat intolerance, Denies polydipsia and Denies polyuria Rosalio/Lymph Denies easy bleeding and Denies easy bruising Aller/Immun Denies wheezing Physical exam (Primary Care) Vital Signs: Last Vital Signs Temp 98.2 F 03/04/25 10:30 Pulse 70 03/04/25 10:30 Resp 16 03/04/25 10:30 BP 130/59 L 10/17/25 10:30 Pulse Ox 98 03/04/25 10:30 Oxygen Delivery Method Room Air 03/04/25 10:30 BMI result Body Mass Index 35.9 Tobacco/Smoking Status: Tobacco use Status Tobacco use date assessed 03/04/25 03/04/25 10:34 Patient Tobacco Use Status Never used Tobacco 03/04/25 10:28 e-Cigarette/Vaping Use Never Used 03/04/25 10:28 PHQ-9: PHQ-9 Score PHQ-9: Total score 16 03/04/25 11:16 Depression Screening Interpretation: Positive Depression Screening Follow-up: Community Mental Health Worker F/U Thrive Assessment: Date of Thrive Assessment Date Thrive assessed 03/04/25 03/04/25 10:28 Currently or been in a relationship where the following occur: No concerns reported Const Other: General: no acute distress, well developed, alert and awake Nutritional Appearance: well nourished Orientation/consciousness: patient oriented x3 HENMT Head: Yes normocephalic and Yes atraumatic Ears: hearing grossly normal bilaterally and TM's normal bilaterally General nose exam: Normal external nose present and Normal nares present Mouth: Normal oral and palatal mucosa present and moist mucous membranes Teeth and gingiva: dentition normal Throat: Yes oropharynx normal Eyes Pupils: Equal, round and reactive pupils present and Pupil accommodation reflex normal EOM: EOMs intact bilaterally Neck Neck: Yes normal visual inspection, Yes no lymphadenopathy and Yes trachea midline Thyroid: Thyroid normal Carotids: no bruits Lymphatic: no lymphadenopathy noted Chest Chest palpation & inspection: normal inspection of the chest Resp Effort & Inspection: normal respiratory effort Auscultation: clear to auscultation bilaterally Cardio Rate: regular rate Rhythm: regular rhythm Heart sounds: S1 normal heart sound present, S2 normal heart sound present, no gallops, no murmurs and no rubs Bruits: no abdominal aortic bruits and no carotid bruits GI Palpation (GI): No Abdominal aortic bruit present, Soft to palpation, nontender, No hepatosplenomegaly present and No Rebound tenderness present Auscultation: normal bowel sounds General: Yes no CVA tenderness Back/Spine/Pelvis Back: no CVA tenderness Cervical Spine: cervical ROM normal and No Cervical spine tenderness Thoracic/Lumbar Spine: thoraco-lumbar ROM normal, No pain with thoraco-lumbar ROM, No thoracic spinal tenderness and No lumbar spinal tenderness Skin General: warm and dry. Normal skin color. Normal skin turgor Lesions: no lesions Rashes: no rashes Trauma: no lacerations or abrasions Wounds: no wounds Nails: normal Neuro General: patient oriented x3, gait normal and CN's II-XI intact bilaterally Cranial nerves: Yes Equal, round and reactive pupils present Cognition (Neuro): normal cognition Gait exam (Neuro): Normal gait present Motor exam (neuro): 5/5 motor strength present throughout Sensory Exam: No Sensory deficit (Neuro) Deep tendon reflexes (DTR's): Right patellar reflex intensity grade: 2+ and Left patellar reflex intensity grade: 2+ Extrem General: Yes normal to inspection, No edema and No calf tenderness Psych Appearance: grossly normal Affect: normal affect Attitude: cooperative Thought process: Normal thought process present Coding Level of Care Code Est Pt Level 4 (91483) Est Pt Prev Care 18-39y(20503) Diagnoses Normal physical exam Z00.00 Anxiety and depression F41.9; F32.A Eye exam, routine Z01.00 Obesity (BMI 30-39.9) E66.9 Laboratory tests ordered as part of a complete physical exam (CPE) Z00.00 Additional Codes KATELIN-7 Assessment Billing - KATELIN-7 Assessment Tool: KTAELIN-7 Assessment 37495 ([id number]) PHQ-9 - 08730 - PHQ-9 Billing: Yes ([id number]) Assessment & Plan Assessment & Plan (1) Normal physical exam: Code(s): Z00.00 - Encounter for general adult medical examination without abnormal findings Category: Medical Plan: No significant functional limitation noted. Continue current treatment regimen. Perform lab work and follow-up for telehealth visit for anxiety, depression, and labs review in 2 weeks. Return sooner with symptoms or concerns. Verbalized understanding and agreed with the plan. (2) Anxiety and depression: Code(s): F41.9 - Anxiety disorder, unspecified; F32.A - Depression, unspecified Category: Medical Plan: She reports reports persistent moderate to severe anxiety and depressive symptoms for the past one month. She easily irritable, tired, lack of focus, and unable to rest. She has two children, a boy and girl, 2 and half years and 6 months respectively. She notes that her current mental health may be affected by depression, returning to work from maternity leave, and immigration issues. 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 She feels overwhelmed with work. She is from the [place] on a working visa and in the process of obtaining permanent residence in the [facility]. Her is supportive. However, she does not have family around to provide academic assistant. She had psychotherapy once monthly monthly for 3-4 months. She stopped receiving therapy after her therapist relocated to a different State in 07/23/2024. She want to reestablish with a new therapist. She has never taken psychotropic medications. She is not interested in taking psychotropic medications at this time; I don't think i am at that level yet. I prefer natural approach first. She denies SI/HI. PHQ-9 and KATELIN-7 scores revealed moderately severe depression and and moderate anxiety respectively. Anxiety and depressive symptoms are related to psychosocial stressors. Declines medication treatment at this time. Routine exercise encouraged. She met with the [facility] who will refer her to a therapist/psychiatrist. Follow-up in 2 weeks or return sooner with worsening or new symptoms. Verbalized understanding and agreed with the plan. (3) Eye exam, routine: Code(s): Z01.00 - Encounter for examination of eyes and vision without abnormal findings Category: Medical Plan: Last eye exam was several years ago. Referred to Ophthalmology for routine eye exam. (4) Obesity (BMI 30-39.9): Code(s): E66.9 - Obesity, unspecified Category: Medical Plan: She currently weighs 236 lb, BMI is 35.9. She was followed by [facility] race relations professor. However, she plans to find a race relations professor. Healthy diet and routine exercise encouraged. Follow-up as needed. Verbalized understanding and agreed with the plan. (5) Laboratory tests ordered as part of a complete physical exam (CPE): Code(s): Z00.00 - Encounter for general adult medical examination without abnormal findings Category: Medical Plan: Fasting labs ordered as part of a complete physical exam. Advised to fast for at least 10 hours before getting labs drawn. May drink water Verbalized understanding and agreed with treatment plan. Plan Total time for this visit was 60 minutes. This include 45 minutes with patient for complete physical exam and acute mental illness management/treatment, and 15 minutes reviewing, coordinating plan of care, and documenting. Orders: Orders Comprehensive Temple. Panel Fast Today Z00.00 - Encounter for general adult medical examination without abnormal findings TSH reflex Free T4 Today Z00.00 - Encounter for general adult medical examination without abnormal findings Complete Blood Count Auto Diff Today Z00.00 - Encounter for general adult medical examination without abnormal findings UA CC w/rflx Micro + Cult Today Z00.00 - Encounter for general adult medical examination without abnormal findings Lipid Panel Today Z00.00 - Encounter for general adult medical examination without abnormal findings Microalbumin, Random (w Creat) Today Z00.00 - Encounter for general adult medical examination without abnormal findings Vitamin D 25-OH Total Today Z00.00 - Encounter for general adult medical examination without abnormal findings Referrals Ophthalmology Referral Z01.00 - Encounter for examination of eyes and vision without abnormal findings
[2025-03-04 10:30] VITALS: BP 130/59; PULSE 70; RESP 16; TEMP 36.8; O2SAT 98; BMI 35.9
== END 2025-03-04 11:35 | disposition home or self-care (01) ==
LOC: HO.HMCFM 10:21
PROVIDERS: PCP Nurse Practitioner Family; Visit Provider Nurse Practitioner Family
DX: Z00.00 Encounter for general adult medical examination without abnormal findings (principal); F41.9 Anxiety disorder, unspecified; E66.9 Obesity, unspecified; Z68.35 Body mass index [BMI] 35.0-35.9, adult; F32.A Depression, unspecified

== ENCOUNTER 2025-03-04 10:20 | Outpatient (REF) | payer OTHER, MEDICAID, SELFPAY ==
[2025-03-04 14:39] LABS: Appearance Urine Cloudy; Glucose Urine UA Negative (Negative); MANUAL DIFF FLAG NO; PH 5.5 (5.0-9.0); Specific Gravity - Urine 1.020 (1.005-1.025)
[2025-03-04 14:49] LABS: Hematocrit 39.3 % (37.0-47.0); Hemoglobin 12.7 g/dl (12.0-16.0); Imm Gran Abs Auto 0.01 X10*3/uL (0.00-0.03); Imm Gran Pct Auto 0.2 % (0.0-0.4); Lymphocytes Absolute Auto 1.8 X10*3/uL (1.2-4.9); Mean Corpuscular HGB Conc 32.3 g/dl (31.0-35.0); Mean Corpuscular Hemoglobin 27.4 pg (27.0-33.0); Mean Corpuscular Volume 84.9 fL (80.0-98.0); NRBC Abs Auto 0.000 X10*3/uL (0.0-0.012); NRBC Pct Auto 0.0 /100WBC (0.0-0.2); Platelet Count 356 X10*3/uL (160-400); Red Blood Count 4.63 X10*6/uL (4.20-5.50); White Blood Count 6.1 X10*3/uL (4.8-10.8)
[2025-03-04 15:14] LABS: Microalbum/Creatinine Ratio Ur 4.7 ug/mg cr (<30)
[2025-03-04 17:16] LABS: Alanine Aminotransferase 30 U/L (0-31); Albumin Level 4.4 g/dL (3.5-5.0); Alkaline Phosphatase 92 U/L (39-117); Anion Gap 15 (12-20); Aspartate Amino Transferase 26 U/L (5-31); Blood Urea Nitrogen 12 mg/dL (9-16); Calcium 9.1 mg/dL (8.4-10.2); Carbon Dioxide 22 mmol/L (22-29); Chloride 107 mmol/L (96-108); Cholesterol 176 mg/dL (<200); Estimated Glomerular Filt Rate > 60; HDL Cholesterol 59 mg/dL (>40); Potassium 3.8 mmol/L (3.3-5.1); Sodium 140 mmol/L (135-145); Total Protein 7.2 g/dL (6.5-8.0); Triglycerides 50 mg/dL (<150)
== END 2025-03-04 10:21 | disposition home or self-care (01) ==
LOC: HO.WFDLDS 10:20
PROVIDERS: PCP Nurse Practitioner Family; Visit Provider Nurse Practitioner Family
DX: Z00.00 Encounter for general adult medical examination without abnormal findings (principal); Z01.00 Encounter for examination of eyes and vision without abnormal findings; F41.9 Anxiety disorder, unspecified; F32.A Depression, unspecified; E66.9 Obesity, unspecified; Z68.35 Body mass index [BMI] 35.0-35.9, adult
CPT/HCPCS: 36415; 80053; 80061; 81003; 82043; 82306; 82570; 84443; 85025; 96127

== ENCOUNTER 2025-03-18 11:46 | Outpatient (AMB) | payer OTHER, MEDICAID, SELFPAY ==
--- NOTE | 2025-03-18 11:43 | A.OFFPC_ITS ---
Intake Visit Reasons: F/U labs Intake Note: patient here for Telehealth follow up for labs review Registered Nurse First Assistant Required: No Is last menstrual period known: Yes Last menstrual period: 02/23/25 Post menopausal: No Patient : No Allergies No Known Allergies Allergy (Verified 03/18/25 11:44) Tobacco use date assessed: 03/18/25 Dental Screening Dental Screen Date: 03/18/25 Did you have a dental visit in the last 12 months?: No Did you have a dental problem in the last 6 months where you did not have access to dental care?: No Was dental information given to patient?: Patient has dentist HPI HPI Comments History of Present Illness Details 34-year-old female presents for a tele alth visit for review of recent lab results. She notes that she has been taking levothyroxine as prescribed without adverse reactions. She notes that things have been better since her last visit. She feels hopeful. She notes she started therapy and has had two therapy sessions (both intakes); she has another session on Friday and is scheduled to have therapy every Friday. She denies anxiety and depression at this time. She admits to making healthy lifestyle choices. No acute symptoms at this time. [facility] Medical History History of Graves' disease Rhinitis Hypothyroidism associated with surgical procedure Hx of thyroid disease Miscarriage Surgical History Hx of oral surgery H/O thyroidectomy Family History Mother High blood pressure Hypothyroidism Father No known health problems Social History Housing: Apartment Patient Tobacco Use Status: Never used Tobacco e-Cigarette/Vaping Use: Never Used Second Hand Smoke Exposure: No Patient : No service: No Current occupational status: employed Current occupation: [employer]) Current occupational exposures/hazards: No Cognitive needs: No Hearing needs: No Vision needs: No Female Reproductive History Menstrual Date of last menstrual period: 02/23/25 Questionnaire Thrive Questionnaire Date Thrive assessed: 03/04/25 I am a: Patient What is your living situation today?: I have a steady place to live Within the past 12 months, did the food you bought not last and you didn't have the money to get more?: Never true Within the past 12 months, did you worry whether your food would run out before you got money to buy more?: Never true Do you have trouble paying for medicines?: No Do you have trouble getting transportation to medical appointments?: No Do you have trouble paying your heating and electricity bill?: No Do you have trouble taking care of your child, family member or friend?: No Do you have trouble with day-to-day activities such as bathing, preparing meals, shopping, managing finances, etc.?: Yes Are you currently unemployed and looking for a job?: No Are you interested in more education?: No Please select the resources that you would like help with: None Currently or been in a relationship where the following occur: No concerns reported THRIVE Score: 0 AUDIT C Alcohol Use Questionnaire (AUDIT-C) 2. How many drinks containing alcohol do you have on a typical day when you are drinking?: 1 or 2 3. How often do you have six or more drinks on one occasion?: Never Total Score: 0 KATELIN-7 AMB Questionnaire KATELIN-7 Date KATELIN - 7 assessed: 03/04/25 Source: Developed by Drs. Ge Piña, Andreia Dunn, Dean Bran and colleagues, with an educational gwen from [employer]. Review of Systems Const Details: Denies chills, Denies fatigue, Denies fever(s), Denies headache(s) and Denies weakness Cardiac Denies chest pain, Denies claudication, Denies leg edema, Denies lightheadedness, Denies palpitations, Denies dyspnea, Denies dyspnea on exertion, Denies orthopnea and Denies other (Loss of consciousness) Resp Denies cough, Denies excessive phlegm production, Denies dyspnea, Denies dyspnea on exertion, Denies snoring and Denies wheezing Psych Denies anxiety or depression Physical exam (Primary Care) Tobacco/Smoking Status: Tobacco use Status Tobacco use date assessed 03/18/25 03/18/25 11:46 Patient Tobacco Use Status Never used Tobacco 03/18/25 11:46 e-Cigarette/Vaping Use Never Used 03/18/25 11:46 Thrive Assessment: Date of Thrive Assessment Date Thrive assessed 03/04/25 03/18/25 11:46 Currently or been in a relationship where the following occur: No concerns reported Const Other: Patient is alert and oriented x3 Telehealth Telehealth Telehealth Platform: Telephone Location of provider rendering services: practice address Location of patient: address on file Patient Identification confirmed using: Name, : Yes Telehealth method: voice only Patient verbally consented to treatment: Yes Patient verbally consented to billing insurance company: Yes Patient informed of any privacy concerns related to visit: Yes Coding Level of Care Code Tele Est Pt Level 3 (44258) Diagnoses Elevated LDL cholesterol level E78.00 Anxiety and depression F41.9; F32.A Time Spent (min) 15 Assessment & Plan Assessment & Plan (1) Elevated LDL cholesterol level: Code(s): E78.00 - Pure hypercholesterolemia, unspecified Category: Medical Plan: Recent LDL level is slightly elevated, 107. Triglycerides, total cholesterol, and HDL levels are normal. Advised to limit foods high in saturated fat and avoid foods high in trans fat. Routine exercise encouraged. Will monitor lipid panel levels annually. Follow-up for transfer of care and complete physical exam next year. Return sooner with symptoms or concerns. Verbalized understanding and agreed with the treatment plan. (2) Anxiety and depression: Code(s): F41.9 - Anxiety disorder, unspecified; F32.A - Depression, unspecified Category: Medical Plan: She notes that things have been better since her last visit. She feels hopeful. She notes she started therapy and has had two therapy sessions (both ); she has another session on Friday and is scheduled to have therapy every Friday. She denies anxiety and depression at this time. Encouraged to continue follow-up with therapy as planned. Return with symptoms or concerns. Verbalized understanding and agreed with the plan.
== END 2025-03-18 14:39 | disposition home or self-care (01) ==
LOC: HO.HMCFM 11:47
PROVIDERS: PCP Nurse Practitioner Family; Visit Provider Nurse Practitioner Family
DX: E78.00 Pure hypercholesterolemia, unspecified (principal); F41.9 Anxiety disorder, unspecified